=== PATIENT | female | born 1955 | race Caucasian/White ===

== ENCOUNTER 2023-12-28 09:40 | Day surgery (SDC) | payer MEDICARE, SELFPAY ==
[2023-12-24 14:10] VITALS: BMI 27.1
[2023-12-28 09:50] VITALS: BMI 26.6
[2023-12-28 10:26] VITALS: BP 143/78; PULSE 80; RESP 16; TEMP 37.1; O2SAT 95; BMI 26.6
--- NOTE | 2023-12-28 10:34 | HO.ANESPROP2 ---
HPI - Anesthesia Eval Consult details Narrative: Colonic Surveillance [facility] Past Medical History Medical History Depression Elevated cholesterol HTN (hypertension) Family History Family history of problems with anesthesia: No Surgical History Surgical History Hx of hemorrhoidectomy H/O colonoscopy History of Problems with Anesthesia: No Social History Social History Household Members: Spouse Patient Tobacco Use Status: Never used Tobacco Use of substances other than those prescribed or required for medical reasons: No Are you DNR?: No Advance Directives: No Advance Directives Information Provided: Yes Meds Allergies Allergy/AdvReac Type Severity Reaction Status Date / Time Penicillins [PENICILLINS] Allergy Unknown RASH Verified 12/28/23 09:49 Home Medications Medication Instructions Recorded Confirmed Last Taken Type Maggie 12/24/23 Unknown History Lexapro 12/24/23 12/24/23 Unknown History bupropion HCl 12/24/23 Unknown History fluticasone propionate 50 1 spray intranasal DAILY 12/24/23 12/24/23 Unknown History mcg/actuation nasal spray,suspension hydrochlorothiazide 12/24/23 Unknown History Exam Height,Weight and Vital Signs: Height 5 ft 8 in Weight 79.379 kg Last Vital Signs Temp 98.7 F 12/28/23 10:26 Pulse 80 12/28/23 10:26 Resp 16 12/28/23 10:26 BP 143/78 H 12/28/23 10:26 Pulse Ox 95 12/28/23 10:26 O2 Del Method Room Air 12/28/23 10:26 Airway Mallampati Class: II TM Dist: >3cm Neck ROM: Full Loose/Missing/Broken Teeth: No Heart: rrr+[id number] Lungs: cta b/l Assessment and Plan Assessment Anesthesia Assessment: Anesthesia Plan Discussed and Chart Reviewed Final Anesthetic Review Family History of Problems with Anesthesia: No History of Problems with Anesthesia: No NPO: Yes ASA Class: II Final Preanesthetic Review: No Changes in Pt Med Stat, Meds/Allgs Chart Reviewed, Consent Obtained/Reviewed and Anes Risks/Benef Reviewed Patient Risk: Intermediate Procedure Risk: Intermediate Assessment/Block/Sedation in SS: Assess/Block/Sedation- Anesthetic Plan Anesthetic Plan: MAC: Disposition: Standard PACU
--- NOTE | 2023-12-28 10:38 | MHC.SHP ---
Pre-Procedural Eval Section A - 24 Hr Update-Section A only Date of Service: 12/28/23 Section B - Complete if H&P > 30 days Chief Complaint: Encounter for screening for malignant neoplasm of Details of Present Illness: see H&P no changes Relevant Family History (Specify if Yes): No Relevant Social History: None Present Medications: see Short Stay Collaborative assessment Medical History: No relevant PMH History of Previous Operations: No relevant previous surgery Allergies: Allergies Allergy/AdvReac Type Severity Reaction Status Date / Time Penicillins [PENICILLINS] Allergy Unknown RASH Verified 12/28/23 09:49 Review of Systems Sugical H&P ROS: Negative: Constitution, Cardiovascular, Respiratory, Neurological, Psychiatric, Hem-Onc, Allergic/Immunologic, Gastrointestinal, Genitourinary, Musculoskeletal, Integumentary, Endocrine and Eyes/Ears/Nose/Throat Exam Surgical H&P Exam: Normal: HEENT, Normal: Heart, Normal: Lungs, Normal: Extremities, Normal: Abdomen, Normal: Skin and Normal: Neurological Plan Diagnosis/Plan: Unchanged I have reviewed the history and physical and performed a pertinent physical examination on my patient. No changes have occurred unless specified. Time Spent With Patient Time: Total time managing care of this patient today ____ minutes.
[2023-12-28 11:09] VITALS: BP 130/59; PULSE 81; RESP 16; TEMP 36.1; O2SAT 97
[2023-12-28 11:24] VITALS: BP 144/62; PULSE 72; RESP 16; O2SAT 97
[2023-12-28 11:39] VITALS: BP 143/76; PULSE 70; RESP 16; TEMP 36.2; O2SAT 96
--- NOTE | 2023-12-28 11:57 | OP_ITS ---
DATE OF SERVICE: 12/28/2023 SURGEON: Fabrizio Jansen MD INDICATIONS: Colon cancer screening and prior history of adenomatous colon polyps. PREOPERATIVE DIAGNOSIS: POSTOPERATIVE DIAGNOSIS: PROCEDURE PERFORMED: Colonoscopy to the terminal ileum. ESTIMATED BLOOD LOSS: COMPLICATIONS: ANESTHESIA: Monitored anesthesia care. ASSISTANTS: SPECIMENS: DESCRIPTION OF PROCEDURE: A history and physical was performed. The risks and benefits of the procedure were explained to the patient. Informed consent was obtained. The patient was placed in the left lateral decubitus position. A digital rectal exam was performed and was found to be normal. The Olympus pediatric video colonoscope was introduced into the rectum and advanced to the cecum. The cecum was identified by transillumination, palpation, and identification of ileocecal valve. Examination was performed. The scope was removed. She tolerated the procedure well and was returned to the recovery area in stable condition. FINDINGS: The terminal ileum was examined and appeared normal. The visualized colonic mucosa was normal. The quality of the prep was good. No polyps were identified. Retroflexed examination showed small internal hemorrhoids. There was mild sigmoid diverticulosis. IMPRESSION: Normal colonoscopy. RECOMMENDATION: 1. Follow up as needed. 2. Repeat colonoscopy is recommended in 10 years for average risk individuals. MD KIN Leach/ALIA / [phone]
== END 2023-12-28 12:10 | disposition home or self-care (01) ==
PROVIDERS: PCP Internal Medicine; Visit Provider Internal Medicine Gastroenterology
PROC: 0DJD8ZZ Inspection of Lower Intestinal Tract, Via Natural or Artificial Opening Endoscopic (ICD-10-PCS; CPT 45378; principal; 2023-12-28 10:50)
DX: Z12.11 Encounter for screening for malignant neoplasm of colon (principal); Z86.010 Personal history of colon polyps; K57.30 Diverticulosis of large intestine without perforation or abscess without bleeding; K64.8 Other hemorrhoids; K58.2 Mixed irritable bowel syndrome; I10 Essential (primary) hypertension; E78.5 Hyperlipidemia, unspecified; F32.A Depression, unspecified; Z79.899 Other long term (current) drug therapy; Z88.0 Allergy status to penicillin; Z98.890 Other specified postprocedural states
CPT/HCPCS: G0105; J2704

== ENCOUNTER 2024-02-05 23:51 | Inpatient (IN) | payer MEDICARE, SELFPAY ==
--- NOTE | ~2024-02-05 | XR_ITS ---
EXAMINATION: XR TIBIA AND FIBULA, LEFT CLINICAL INFORMATION: Postreduction. COMPARISON: None available. TECHNIQUE: AP and lateral views of the left tibia and fibula were obtained. FINDINGS: There has been partial reduction of the previously noted distal fibular and medial malleolus fractures as well as tibiotalar dislocation. There are persistent mildly displaced fractures of the distal fibula and medial malleolus. There is medial subluxation of the tibia relative to the talus. There has been interval placement of a cast. XR/XR tibia fibula LT 2V IMPRESSION: Partial reduction of previously noted distal fibular and medial malleolus fractures and tibiotalar dislocation.
--- NOTE | ~2024-02-05 | FL_ITS ---
EXAMINATION: XR FLUOROSCOPY WITH IMAGES CLINICAL INFORMATION: Left ankle fracture. COMPARISON: Ankle radiographs 02/06/2024. TECHNIQUE: Fluoroscopy Supervised By: Dr. Jt Medrano. Fluoroscopy Time: 0.2 min Cumulative Dose: 0.459 mGy DAP: 0.07194 mGy-m2 Images: 3 FINDINGS: 3 images demonstrate ORIF left ankle with plate and screw device along the fibula and 2 screws in the medial malleolus. An additional metallic radiopacity is seen overlying the cortex of the medial tibial cortex. Please correlate with the operative report. FL/FL guidance in OR IMPRESSION: Fluoroscopy provided for ORIF of left ankle fracture.
--- NOTE | ~2024-02-05 | CT_ITS ---
EXAMINATION: CT HEAD WITHOUT CONTRAST CLINICAL INFORMATION: Fall. Pain. COMPARISON: None available. TECHNIQUE: Contiguous axial imaging was performed from the skull base to vertex without intravenous administration of contrast. This CT examination was performed using dose optimization techniques as appropriate, variously including the following: *Automated exposure control *Adjustment of mA and/or kV according to patient size (this includes techniques or standardized protocols for targeted exams where dose is matched to indication/reason for exam; i.e. extremities or head) *Use of iterative reconstruction technique DLP: 695 mGy-cm FINDINGS: The lateral, third and fourth ventricles are normally outlined. The cortical sulci and basal cisterns are normally outlined as well. There is mild bilateral periventricular and central white matter diminished attenuation. There is no acute territorial defect, hemorrhage or midline shift. The extra-axial spaces are unremarkable. Calvarium/scalp: Calvarium is intact. There is right frontal/supraorbital soft tissue swelling. Maxillofacial sinuses and mastoids: Clear as visualized. CT/CT head/brain wo IV con IMPRESSION: 1. No acute territorial defect, hemorrhage or midline shift. 2. Mild chronic small vessel ischemic changes.
--- NOTE | ~2024-02-05 | XR_ITS ---
EXAMINATION: XR ANKLE, LEFT CLINICAL INFORMATION: Trauma. Pain. COMPARISON: None available. TECHNIQUE: AP, lateral, and mortise views of the left ankle. FINDINGS: The bone mineralization is within normal limits. There is a displaced comminuted fracture through the distal fibula. There is also an apparent fracture through the medial malleolus. There is complete tibiotalar dislocation. The soft tissues are grossly unremarkable. XR/XR ankle LT min 3V IMPRESSION: 1. Displaced comminuted fracture of the distal fibula. 2. Apparent fracture through the medial malleolus. 3. Complete tibiotalar dislocation.
--- NOTE | ~2024-02-05 | XR_ITS ---
EXAMINATION: XR CHEST CLINICAL INFORMATION: Dizziness. COMPARISON: None available. TECHNIQUE: Frontal view of the chest was obtained. FINDINGS: No significant abnormality is noted involving the heart, lungs, mediastinum, bony thorax or soft tissues. XR/XR chest 1V IMPRESSION: Unremarkable examination.
[2024-02-06] VITALS (20 sets, daily range): BP systolic 110–150; BP diastolic 47–88; PULSE 12–98; RESP 11–18; TEMP 36.6–37.4; O2SAT 88–99; BMI 28.6
--- NOTE | 2024-02-06 | ECG_ITS ---
Test Reason : DIZZINESS/FALL Blood Pressure : / mmHG Vent. Rate : 076 BPM Atrial Rate : 076 BPM P-R Int : 162 ms QRS Dur : 100 ms QT Int : 420 ms P-R-T Axes : 056 029 043 degrees QTc Int : 472 ms Normal sinus rhythm Normal ECG When compared with ECG of 15-DEC-2014 07:19, No significant change was found Referred By: Generic ED Physician Electronically Signed By:IVET MONTANA MD
[2024-02-06 00:55] LABS: Basophils Percent Auto 0.2 % (0-2); Eosinophils Percent Auto 0.2 % (0-4); Hematocrit 36.9 % (37.0-47.0); Hemoglobin 12.7 g/dl (12.0-16.0); Imm Gran Abs Auto 0.08 X10*3/uL (0.00-0.03); Imm Gran Pct Auto 0.5 % (0.0-0.4); Lymphocytes Absolute Auto 0.3 X10*3/uL (1.2-4.9); Lymphocytes Percent Auto 2.1 % (20-40); MANUAL DIFF FLAG SCAN; Mean Corpuscular HGB Conc 34.4 g/dl (31.0-35.0); Mean Corpuscular Hemoglobin 32.1 pg (27.0-33.0); Mean Corpuscular Volume 93.2 fL (80.0-98.0); Mean Platelet Volume 11.5 fL (9.4-12.3); Monocytes Absolute Auto 0.6 X10*3/uL (0.1-1.2); Monocytes Percent Auto 3.4 % (2-11); Neutrophils Absolute Auto 15.3 x10*3/uL (2.0-8.3); Neutrophils Percent Auto 93.6 % (45-73); Platelet Count 206 X10*3/uL (160-400); Red Blood Count 3.96 X10*6/uL (4.20-5.50); Red Cell Distribution Width 12.7 % (11.0-16.0); SCAN SMEAR FLAG 1; White Blood Count 16.3 X10*3/uL (4.8-10.8)
--- NOTE | 2024-02-06 00:56 | ED.DIZZY ---
HPI - Dizziness General Chief Complaint: Dizziness Stated Complaint: dizziness and fall Time Seen by Provider: 02/06/24 00:55 Source: patient Mode of arrival: EMS Limitations: no limitations History of Present Illness HPI Narrative: Patient nauseated vomited few times tried to go to bathroom felt lightheaded and fell hitting her head to the ground and injury to the left ankle with obvious deformity patient does not remember exactly what happened no chest pain or palpitation no shortness of breath no other injuries Related Data Home Medications ?Medication ?Instructions ?Recorded ?Confirmed Maggie 12/24/23 Lexapro 12/24/23 12/24/23 bupropion HCl 12/24/23 fluticasone propionate 50 1 spray intranasal DAILY 12/24/23 12/24/23 mcg/actuation nasal spray,suspension hydrochlorothiazide 12/24/23 Previous Rx's ?Medication ?Instructions ?Recorded oxycodone 5 mg tablet 5 mg PO Q6H PRN pain #30 tabs 02/06/24 Allergies Allergy/AdvReac Type Severity Reaction Status Date / Time Penicillins [PENICILLINS] Allergy Unknown RASH Verified 02/06/24 00:27 Review of Systems Review of Systems: Yes all other systems are reviewed and are negative PMFSH Past Medical History Medical History Depression Elevated cholesterol HTN (hypertension) Surgical History Hx of hemorrhoidectomy H/O colonoscopy Social History Social History Household Members: Spouse Patient Tobacco Use Status: Never used Tobacco Smoked in Last 30 Days: No Advance Directives: No Advance Directives Information Provided: No Physical Exam Vital Signs: Vital Signs: Last Vital Signs Temp 98.0 F 02/06/24 05:55 Pulse 80 02/06/24 05:55 Resp 14 02/06/24 05:55 BP 124/49 L 02/06/24 05:55 Pulse Ox 96 02/06/24 05:55 O2 Del Method Nasal Cannula 02/06/24 05:55 O2 Flow Rate 2 02/06/24 05:55 Oxygen Flow Rate 2 02/06/24 02:25 BMI result Body Mass Index 28.6 Appearance: Alert. Oriented X3. No acute distress. Eyes: PERRLA, No Nystagmus HEENT: Pharynx normal. Oral Mucosa moist ecchymosis on the right eyebrow, normocephalic Neck: Normal inspection. Neck supple. CVS: Normal heart rate and rhythm. Pulses normal. Respiratory: No respiratory distress. Equal air entry bilateral, no wheezing/rales/rhonchi Abdomen: Soft and nontender. Bowel sounds are present, no mass palpable, no CVA tenderness Skin: Skin warm and dry. Normal skin color. Normal skin turgor. Extremities: Obvious deformity with skin tenting left ankle fracture and dislocation neurovascular intact Neuro: Oriented X 3. No motor deficit. No sensory deficit.No cerebellar signs , cranial nerves II-XII intact Medications Administered Discontinued Medications Generic Name Dose Route Start Last Admin Trade Name Freq PRN Reason Stop Dose Admin Hydromorphone HCl 2 mg 02/06/24 01:27 02/06/24 01:36 Hydromorphone Hcl 2 Mg/Ml Vial IVPUSH 02/06/24 01:28 2 mg ONCE ONE Administration Protocol Sodium Chloride 1,000 mls @ 999 mls/hr 02/06/24 03:06 02/06/24 04:23 Ns IV 02/06/24 04:06 Infused .Q1H1M ONE Infusion Ketorolac Tromethamine 30 mg 02/06/24 03:06 02/06/24 03:10 Ketorolac Tromethamine 30 Mg/Ml Vial IVPUSH 02/06/24 03:07 30 mg ONCE ONE Administration Ondansetron HCl 4 mg 02/06/24 01:27 02/06/24 01:36 Ondansetron Hcl 4 Mg/2 Ml Vial IVPUSH 02/06/24 01:28 4 mg ONCE ONE Administration Oxycodone HCl 10 mg 02/06/24 06:45 02/06/24 07:08 Oxycodone Hcl Immed Release 5 Mg Tablet PO 02/06/24 06:46 10 mg ONCE ONE Administration Propofol 200 mg 02/06/24 01:27 02/06/24 02:09 Propofol 200 Mg/20 Ml Vial IVPUSH 02/06/24 01:28 70 mg ONCE ONE Administration Medical Decision Making Medical Decision Making MDM Narrative: Patient is status post bimalleolar fracture of left ankle with complete tibiotalar dislocation status post closed reduction under conscious sedation with acceptable reduction and alignment patient received fentanyl prior to arrival and morphine in the ER desaturating in 80s while sleeping prior to this patient denied any lung issues when she wakes up with saturating 96% at room air will observe in ER till patient is more awake with stable saturations case discussed with orthopedic patient does not need surgery but may need in 2-3 days after swelling goes down if patient can ambulate with walker or cane patient may be able to go home, patient prefers to go home patient's x-ray pre and postreduction were seen by orthopedic PA who discussed the case with Orthopedic Dr. Medrano Differential Diagnosis Differential Diagnoses: The differential diagnosis associated with the presentation includes Left ankle fracture dislocation/vasovagal syncope Admission/Observation Consideration of admission/observation: Escalation of care including admission/observation considered Lab Data MDM Lab Attestation statement: I reviewed the patient's lab results. 02/06/24 00:46 02/06/24 00:46 Labs: Lab Results 02/06/24 Range/Units 00:46 WBC 16.3 H (4.8-10.8) X10*3/uL RBC 3.96 L (4.20-5.50) X10*6/uL Hgb 12.7 (12.0-16.0) g/dl Hct 36.9 L (37.0-47.0) % MCV 93.2 (80.0-98.0) fL MCH 32.1 (27.0-33.0) pg MCHC 34.4 (31.0-35.0) g/dl RDW 12.7 (11.0-16.0) % Plt Count 206 (160-400) X10*3/uL MPV 11.5 (9.4-12.3) fL Immature Gran % (Auto) 0.5 H (0.0-0.4) % Neut % (Auto) 93.6 H (45-73) % Lymph % (Auto) 2.1 L (20-40) % [place] % (Auto) 3.4 (2-11) % Eos % (Auto) 0.2 (0-4) % Baso % (Auto) 0.2 (0-2) % Lymph # (Auto) 0.3 L (1.2-4.9) X10*3/uL [place] # (Auto) 0.6 (0.1-1.2) X10*3/uL Eos # (Auto) 0.0 (0.0-0.4) X10*3/uL Baso # (Auto) 0.0 (0.0-0.2) X10*3/uL Abs Immat Gran (auto) 0.08 H (0.00-0.03) X10*3/uL Absolute Neuts (auto) 15.3 H (2.0-8.3) x10*3/uL Absolute Nucleated RBC 0.000 (0.0-0.012) X10*3/uL Nucleated RBC % (auto) 0.0 (0.0-0.2) /100WBC Smear Tech's Comments VERIFIED Sodium 135 (135-145) mmol/L Potassium 3.3 (3.3-5.1) mmol/L Chloride 105 (96-108) mmol/L Carbon Dioxide 22 (22-29) mmol/L Anion Gap 11 L (12-20) BUN 20 H (9-16) mg/dL Creatinine 0.68 (0.5-1.4) mg/dL Estim Creat Clear Calc 87.6 Estimated GFR > 60 Random Glucose 113 (60-115) mg/dL Calcium 8.0 L (8.4-10.2) mg/dL Total Bilirubin 0.5 (0.0-1.0) mg/dL AST 30 (5-31) U/L ALT 24 (0-31) U/L Alkaline Phosphatase 67 (39-117) U/L Troponin I High Sens 6.4 (<3.5-17.0) ng/L Total Protein 5.9 L (6.5-8.0) g/dL Albumin 3.6 (3.5-5.0) g/dL Influenza Type A (PCR) NEGATIVE (Negative) Influenza Type B (PCR) NEGATIVE (Negative) RSV RNA Qual (PCR) NEGATIVE (Negative) SARS-CoV-2 RNA (RT-PCR) NEGATIVE (Negative) Independent Interpretation I performed an independent interpretation of an: Plain X-Ray Interpretation: XR/XR ankle LT min 3V IMPRESSION: 1. Displaced comminuted fracture of the distal fibula. 2. Apparent fracture through the medial malleolus. 3. Complete tibiotalar dislocation. Radiology Impression Discussion of test interpretation with radiology: I have reviewed the radiologist's reading. Radiologist Impression: [id number] [place] [address] XRay Report Signed Patient: Uzair Alonso MR#: [id number] : 1955 Acct:[id number] Age/Sex: 68 / F ADM Date: 02/06/24 Loc: HO.ED Attending Dr: Ordering Physician: Nate Ceja MD Date of Service: 02/06/24 Procedure(s): XR tibia fibula LT 2V Accession Number(s): [id number] cc: MADISON MENCHACA MD; Nate Ceja MD~ EXAMINATION: XR TIBIA AND FIBULA, LEFT CLINICAL INFORMATION: Postreduction. COMPARISON: None available. TECHNIQUE: AP and lateral views of the left tibia and fibula were obtained. FINDINGS: There has been partial reduction of the previously noted distal fibular and medial malleolus fractures as well as tibiotalar dislocation. There are persistent mildly displaced fractures of the distal fibula and medial malleolus. There is medial subluxation of the tibia relative to the talus. There has been interval placement of a cast. XR/XR tibia fibula LT 2V IMPRESSION: Partial reduction of previously noted distal fibular and medial malleolus fractures and tibiotalar dislocation. Procedures Orthopedic Joint Reduction Joint #1: Time Out Performed: Yes Side: left Joint Reduction Location: ankle Analgesia: procedural sedation and other (Propofol 70 mg) Amount of anesthesic used (mL): 7 Technique used: traction/counter-traction Post-reduction neuro exam: intact Post-reduction vascular: intact Post Reduction X-Ray Obtained: Yes Post Reduction X-Ray Results: reduced Patient Tolerated Procedure: well Orthopedic Splinting/Casting Injury #1: Side: left Lower Extremity Injury Location: ankle Lower Extremity Immobilizer: posterior splint and stirrup splint Other Orthopedic Equipment: crutches Critical Care Time Critical Care Time Critical Care Time: Yes Total Critical Care Time: 60 Attestation: The patient was critically ill with a high probability of imminent or life threatening deterioration. I spent greater than 65???minutes of discontinuous time evaluating the patient,delivering critical care at the bedside, discussing and evaluating pertinent data with consultants. Critical care time does not include time spent performing separately billable procedures or teaching. Total time spent performing critical care was 60???minutes. Discharge Plan Discharge Clinical Impression: Closed fracture dislocation of left ankle Patient Disposition: Still a Patient Instructions: Leg Fracture (ED) Additional Instructions: Keep your left leg raised on the pillow when you sleep Nonweightbearing left leg use walker/crutches Pain medication as prescribed Follow-up with orthopedics next week Prescriptions: New oxycodone 5 mg tablet 5 mg PO Q6H PRN (Reason: pain) Qty: 30 0RF Rx Instructions: Partial Fill upon patient request. No Action Maggie fluticasone propionate [Flonase] 50 mcg/actuation [place],Suspension 1 spray INTRANASAL DAILY Rx Instructions: administer into each nostril Lexapro bupropion HCl hydrochlorothiazide Referrals: Jt Medrano MD [Physician] - 3 days Print Language: Irish
[2024-02-06 01:29] LABS: Troponin-I High Sensitivity 6.4 ng/L (<3.5-17.0)
[2024-02-06 01:31] LABS: Influenza A PCR NEGATIVE (Negative); Influenza B PCR NEGATIVE (Negative); Resp Syncy Virus RNA Qual PCR NEGATIVE (Negative); SARS COV2 PCR INHOUSE NEGATIVE (Negative)
[2024-02-06] MEDS: ondansetron HCL 4 MG/2 ML VIAL IVPUSH (01:36)
[2024-02-06] MEDS: HYDROmorphone HCl 2 MG/ML VIAL IVPUSH (01:36)
[2024-02-06 02:01] LABS: Alanine Aminotransferase 24 U/L (0-31); Albumin Level 3.6 g/dL (3.5-5.0); Alkaline Phosphatase 67 U/L (39-117); Anion Gap 11 (12-20); Aspartate Amino Transferase 30 U/L (5-31); Bilirubin Total 0.5 mg/dL (0.0-1.0); Blood Urea Nitrogen 20 mg/dL (9-16); Carbon Dioxide 22 mmol/L (22-29); Chloride 105 mmol/L (96-108); Creatinine Clr Calc Pharmacy 87.6; Estimated Glomerular Filt Rate > 60; Glucose Random 113 mg/dL (60-115); Potassium 3.3 mmol/L (3.3-5.1); Sodium 135 mmol/L (135-145); Total Protein 5.9 g/dL (6.5-8.0)
[2024-02-06 02:09] LABS: SLIDE REVIEW VERIFIED
[2024-02-06] MEDS: propofoL 200 MG/20 ML VIAL IVPUSH (02:09)
[2024-02-06] MEDS: Ketorolac Tromethamine 30 MG/ML VIAL IVPUSH (03:10)
[2024-02-06] MEDS: 0.9 % Sodium Chloride 1,000 ML 999 ML IV (03:10)
--- NOTE | 2024-02-06 05:36 | PC.NURSE ---
pt came in after a fall from getting dizzy at home. Had been sick since this evening with N/V and became lightheaded and fell with injury to L ankle with obvious deformity. PMH HTN/HLD L ankle reduction done in ED with moderate sedation and . fx. Pt desat in ED to 89 and was placed on 2L. Surgical consult . Will need surgery however needs swelling to go down first. Attemtpt to ambulate for discharge until low saturation. 20 L AC
[2024-02-06] MEDS: oxyCODONE HCl Immed Release 5 MG TABLET 10 MG PO (07:08)
--- NOTE | 2024-02-06 09:26 | PHA.MEDREC ---
Pharmacy Consult ? Medication Reconciliation Pharmacy has completed the medication reconciliation.
--- NOTE | 2024-02-06 10:27 | PM.IMHP ---
History of Present Illness Date of Service: 02/06/24 Chief Complaint: Fall, Left ankle fracture 68/F with HTN takes HCTZ here with fall and left caryn injuy. After dinner yesterday, she had nausea and vomitting and while going to bathroom ritu dzzy and felt, didn't pass out. She injured the left ankle. Xray showed distal fibular and medial malleolus fractures and tibiotalar dislocation.She was to be discharged home, however while sleeping in the ED noted to have drop in O2 sat to below 90, at rest saturating 98 % on room. She has no chest pain or shortness of breath. When attempted to ambulate also O2 dropped and is thus been admitted Review of Systems Review of Systems: Gen: no fever Resp: no sob, no cough CV: no chest, no HIGGINS, no leg edema GI: No n/v, no abd pain Neuro: No confusion Yes all other systems are reviewed and are negative [facility] Medical History Depression Elevated cholesterol HTN (hypertension) Surgical History Hx of hemorrhoidectomy H/O colonoscopy Social History Household Members: Spouse Housing: House Do you presently have visiting nurse or other home services: No Patient Tobacco Use Status: Never used Tobacco Smoked in Last 30 Days: No Use of substances other than those prescribed or required for medical reasons: No Have you been hit, kicked, punched, or otherwise hurt by someone within the past year? If so, by whom?: No Do you feel safe in your current relationship?: Yes Is there a partner from a previous relationship who is making you feel unsafe now?: No Are you made to feel afraid or neglected: No Advance Directives: No Advance Directives Information Provided: No Do you have thoughts of harming others: None Do you have a plan to hurt others: No Plan Recently lost weight without trying: No How much weight loss: Not applicable Eating poorly because of decreased appetite: No Nutrition screen score: 0 Nutrition Risks: No Nutritional Risk Patient : No : No Poor oral hygiene: No Meds Allergies Allergy/AdvReac Type Severity Reaction Status Date / Time Penicillins [PENICILLINS] Allergy Unknown RASH Verified 02/06/24 00:27 Home Medications ?Medication ?Instructions ?Recorded ?Confirmed ?Last Taken ?Type fluticasone propionate 50 1 spray intranasal DAILY 12/24/23 02/06/24 02/05/24 History mcg/actuation nasal spray,suspension bupropion HCl 300 mg 24 hr tablet, 300 mg PO DAILY 02/06/24 02/06/24 02/05/24 History extended release escitalopram oxalate 5 mg tablet 5 mg PO DAILY 02/06/24 02/06/24 02/05/24 History fexofenadine 180 mg tablet 180 mg PO DAILY 02/06/24 02/06/24 02/05/24 History (Maggie Allergy) hydrochlorothiazide 25 mg tablet 25 mg PO DAILY 02/06/24 02/06/24 02/05/24 History Physical Exam Vital Signs and Narrative: Vital Signs: Last Vital Signs Temp 98.0 F 02/06/24 08:27 Pulse 78 02/06/24 08:27 Resp 11 L 02/06/24 08:27 BP 117/60 02/06/24 08:27 Pulse Ox 95 02/06/24 08:27 O2 Del Method Nasal Cannula 02/06/24 08:27 O2 Flow Rate 2 02/06/24 08:27 Oxygen Flow Rate 2 02/06/24 02:25 BMI result Body Mass Index 28.6 Constitutional: Alert, in no distress Mental Status: Oriented to person, place and time. Eyes: Pupils are equal, round and reactive to light. Ear, Nose and Throat: Oropharynx clear, mucous membranes moist. Ears and nose without deformities. Trachea midline. Respiratory: Clear to auscultation. No wheezing, rales or rhonchi. Cardiovascular: S1 S2 regular. No murmurs, rubs or gallops. Gastrointestinal: Abdomen soft, non-tender, non-distended. Normal bowel sounds.? Neurologic: Cranial nerves II-XII grossly intact. No focal neurological deficits. Moves all extremities spontaneously.? Skin: No rashes or lesions.? Musculoskeletal: No cyanosis or clubbing. Psychiatric: Normal mood and affect? Results Labs 02/07/24 05:22 02/07/24 05:22 Labs: Imaging Radiologist's Impressions: Impressions Ankle X-Ray 02/06/24 01:03 IMPRESSION: 1. Displaced comminuted fracture of the distal fibula. 2. Apparent fracture through the medial malleolus. 3. Complete tibiotalar dislocation. Chest X-Ray 02/06/24 01:03 IMPRESSION: Unremarkable examination. Head CT 02/06/24 01:05 IMPRESSION: 1. No acute territorial defect, hemorrhage or midline shift. 2. Mild chronic small vessel ischemic changes. Tibia/Fibula X-Ray 02/06/24 02:35 IMPRESSION: Partial reduction of previously noted distal fibular and medial malleolus fractures and tibiotalar dislocation. Assessment and Plan (1) Closed fracture dislocation of left ankle: Status: Acute (2) Hypoxia: Status: Acute Plan 68/F with HTN here with distal fibular and medial malleolus fractures and tibiotalar dislocation distal fibular and medial malleolus fractures and tibiotalar dislocation s/p splint to left ankle -Ortho consult, Pain management with morphine Dizziness likely related to dehydration, nausea and vomitting, -IVF Hypoxia mostly while sleeping-- suspect sleep apnea, O2 sat 98 on room air at res--low suspdicion for PE, no chest pain, no tachycardia -check DDimer if signficantly high, get CTA -Overnight O2 study Quality Stroke Does the patient have a stroke diagnosis?: No VTE Prior VTE?: No VTE Risk Level:: Medical - moderate - high VTE Device Contraindication: Treatment Not Indicated VTE Drug Contraindication: N/A - Med Ordered
[2024-02-06] MEDS: Escitalopram Oxalate 5 MG TABLET PO (10:45)
[2024-02-06] MEDS: Enoxaparin Sodium 40 MG/0.4 ML SYRINGE SUBCUT (10:45)
[2024-02-06] MEDS: buPROPion HCl XL 300 MG TAB.ER.24H PO (10:45)
[2024-02-06] MEDS: Morphine Sulfate 2 MG/ML CARTRIDGE IVPUSH ×2 (10:48→18:12)
[2024-02-06 11:58] LABS: D Dimer High Sensitivity 343 NG/ML
--- NOTE | 2024-02-06 13:10 | PC.NURSE ---
Holding CTA at this time per Dr Bautista as no hypoxia at this time.
[2024-02-06] MEDS: Ibuprofen 600 MG TABLET PO (15:59)
[2024-02-06] MEDS: 0.9 % Sodium Chloride Flush 3 ML SYRINGE IVFLUSH (16:03)
--- NOTE | 2024-02-06 19:25 | PC.NURSE ---
Addendum entered by Cee Keenearnacion 02/06/24 19:31: purewick in place with positive output. left ankle in cast, pt denies any numbness, 2 sec cap refill notes of exposed toes. Original Note: Assumed care pot pt at 1900. Pt a/o in no acute distress. Skin pwd, Respirations even and unlabored, vss, pt denies pain at this time. Call mathur within reach. Awaiting bed assignment
[2024-02-06] MEDS: Acetaminophen 325 MG TABLET 650 MG PO (21:16)
--- NOTE | 2024-02-06 22:42 | PC.RT ---
Overnight pulse Oximetry delayed until 02/07/2024 due to pt still remaining in the emergency department and unable to guarantee the amount of sleep necessary to complete study. Provider aware
[2024-02-07] VITALS (7 sets, daily range): BP systolic 114–152; BP diastolic 60–73; PULSE 74–92; RESP 12–20; TEMP 36.2–37.5; O2SAT 92–96; BMI 28.6
[2024-02-07] MEDS: 0.9 % Sodium Chloride Flush 3 ML SYRINGE IVFLUSH ×4 (03:14→19:52)
[2024-02-07] MEDS: Morphine Sulfate 2 MG/ML CARTRIDGE IVPUSH ×4 (03:22→23:06)
[2024-02-07 05:33] LABS: Hematocrit 32.2 % (37.0-47.0); Hemoglobin 10.9 g/dl (12.0-16.0); Mean Corpuscular HGB Conc 33.9 g/dl (31.0-35.0); Mean Corpuscular Hemoglobin 32.2 pg (27.0-33.0); Platelet Count 166 X10*3/uL (160-400); Red Blood Count 3.39 X10*6/uL (4.20-5.50); Red Cell Distribution Width 13.3 % (11.0-16.0); White Blood Count 3.1 X10*3/uL (4.8-10.8)
[2024-02-07 05:52] LABS: Anion Gap 9 (12-20); Blood Urea Nitrogen 11 mg/dL (9-16); Calcium 8.8 mg/dL (8.4-10.2); Carbon Dioxide 28 mmol/L (22-29); Chloride 103 mmol/L (96-108); Creatinine Clr Calc Pharmacy 81.5; Estimated Glomerular Filt Rate > 60; Glucose Random 98 mg/dL (60-115); Potassium 3.3 mmol/L (3.3-5.1); Sodium 137 mmol/L (135-145)
--- NOTE | 2024-02-07 07:19 | PM.CNOR ---
History of Present Illness HPI Consult date: 02/07/24 Chief complaint: Left Ankle fracture, hypoxia Narrative: Ms. Alonso is a 68 yo female who presented to the ED after attempting to navigate to the bathroom. She felt lightheaded and fell hitting her head to the ground and injury to the left ankle with obvious deformity. No additional significant medical history. She is ambulatory at baseline. Does not use any assistive devices to ambulate. She was admitted to the medicine service with orthopedic consult for the left ankle fracture dislocation. She is currently resting in bed with no complaints. Pain is managed. Splint applied to left lower extremity is comfortable. Review of Systems Review of Systems: Yes all other systems are reviewed and are negative PMFSH Past Medical History Medical History Depression Elevated cholesterol HTN (hypertension) Surgical History Surgical History Hx of hemorrhoidectomy H/O colonoscopy Social History Social History Household Members: Spouse Housing: House Do you presently have visiting nurse or other home services: No Patient Tobacco Use Status: Never used Tobacco Smoked in Last 30 Days: No Use of substances other than those prescribed or required for medical reasons: No Have you been hit, kicked, punched, or otherwise hurt by someone within the past year? If so, by whom?: No Do you feel safe in your current relationship?: Yes Is there a partner from a previous relationship who is making you feel unsafe now?: No Are you made to feel afraid or neglected: No Advance Directives: No Advance Directives Information Provided: No Do you have thoughts of harming others: None Do you have a plan to hurt others: No Plan Recently lost weight without trying: No How much weight loss: Not applicable Eating poorly because of decreased appetite: No Nutrition screen score: 0 Nutrition Risks: No Nutritional Risk Patient : No : No Poor oral hygiene: No Meds Allergies Allergy/AdvReac Type Severity Reaction Status Date / Time Penicillins [PENICILLINS] Allergy Unknown RASH Verified 02/06/24 00:27 Active Medications: Current Medications Acetaminophen (Acetaminophen 325 Mg Tablet) 650 mg PO Q6H PRN PRN Reason: Pain, Mild (Pain Scale 1-3) Last Admin: 02/06/24 21:16 Dose: 650 mg Al Hydroxide/Mg Hydroxide (Magnesium Hydrox/Alum Hydrox 30 Ml Oral.Susp) 30 ml PO Q4H PRN PRN Reason: Heartburn/Nausea Bupropion HCl (Bupropion Hcl Xl 300 Mg Tab.Er.24h) 300 mg PO DAILY [facility] Last Admin: 02/06/24 10:45 Dose: 300 mg Docusate Sodium (Docusate Sodium 100 Mg Capsule) 100 mg PO DAILY PRN PRN Reason: Constipation Enoxaparin Sodium (Enoxaparin Sodium 40 Mg/0.4 Ml Syringe) 40 mg SUBCUT Q24H [facility] Last Admin: 02/06/24 10:45 Dose: 40 mg Escitalopram Oxalate (Escitalopram Oxalate 5 Mg Tablet) 5 mg PO DAILY [facility] Last Admin: 02/06/24 10:45 Dose: 5 mg Fluticasone Propionate (Fluticasone Propionate Nasal 16 Gm [place]) 1 spray NOSTRIL-B DAILY [facility] Last Admin: 02/06/24 10:46 Dose: Not Given Hydrochlorothiazide (Hydrochlorothiazide 25 Mg Tablet) 25 mg PO DAILY [facility]; Protocol Ibuprofen (Ibuprofen 600 Mg Tablet) 600 mg PO Q6H PRN PRN Reason: Pain, Moderate(Pain Scale 4-6) Last Admin: 02/06/24 15:59 Dose: 600 mg Loratadine (Loratadine 10 Mg Tablet) 10 mg PO DAILY [facility] Magnesium Hydroxide (Milk Of Magnesia 30 Ml Oral.Susp) 30 ml PO DAILY PRN PRN Reason: Constipation Morphine Sulfate (Morphine Sulfate 2 Mg/Ml Cartridge) 2 mg IVPUSH Q6H PRN; Protocol PRN Reason: Pain, Severe (Pain Scale 7-10) Last Admin: 02/07/24 03:22 Dose: 2 mg Ondansetron HCl (Ondansetron Hcl 4 Mg/2 Ml Vial) 4 mg IVPUSH Q8H PRN PRN Reason: Nausea and Vomiting Sodium Chloride (0.9 % Sodium Chloride Flush 3 Ml Syringe) 3 ml IVFLUSH QSHIFT [facility] Last Admin: 02/07/24 03:14 Dose: 3 ml Home Medications ?Medication ?Instructions ?Recorded ?Confirmed ?Last Taken ?Type fluticasone propionate 50 1 spray intranasal DAILY 12/24/23 02/06/24 02/05/24 History mcg/actuation nasal spray,suspension bupropion HCl 300 mg 24 hr tablet, 300 mg PO DAILY 02/06/24 02/06/24 02/05/24 History extended release escitalopram oxalate 5 mg tablet 5 mg PO DAILY 02/06/24 02/06/24 02/05/24 History fexofenadine 180 mg tablet 180 mg PO DAILY 02/06/24 02/06/24 02/05/24 History (Maggie Allergy) hydrochlorothiazide 25 mg tablet 25 mg PO DAILY 02/06/24 02/06/24 02/05/24 History Physical Exam Vital Signs: Vital Signs: Last Vital Signs Temp 98.1 F 02/07/24 07:08 Pulse 74 02/07/24 07:08 Resp 14 02/07/24 07:08 BP 119/60 02/07/24 07:08 Pulse Ox 94 02/07/24 07:08 O2 Del Method Room Air 02/07/24 07:08 O2 Flow Rate 2 02/06/24 08:27 Oxygen Flow Rate 2 02/06/24 02:25 BMI result Body Mass Index 28.6 Const: General: cooperative, healthy appearing and no acute distress Resp: Effort & Inspection: normal respiratory effort and able to speak in complete sentences Cardio: Rate: regular rate Peripheral pulses: Peripheral pulses 2+ throughout GI: Palpation (GI): Soft to palpation Skin: Lesions: no lesions Rashes: no rashes Extrem: Other: Left lower extremity in posterior short leg splint. Splint is c/d/i. Able to move digits. Sensation reportedly intact. Capillary refill is brisk. Results Labs 02/07/24 05:22 02/07/24 05:22 Labs: Abnormal lab results 02/07/24 Range/Units 05:22 WBC 3.1 L (4.8-10.8) X10*3/uL RBC 3.39 L (4.20-5.50) X10*6/uL Hgb 10.9 L (12.0-16.0) g/dl Hct 32.2 L (37.0-47.0) % Anion Gap 9 L (12-20) H & H 02/06/24 02/07/24 Range/Units 00:46 05:22 Hgb 12.7 10.9 L (12.0-16.0) g/dl Hct 36.9 L 32.2 L (37.0-47.0) % All other labs normal. Assessment and Plan (1) Hypoxia: Status: Acute (2) Closed fracture dislocation of left ankle: Status: Acute Keep splint c/d/i Pain management as appropriate NWB LLE Plan for surgical fixation once medically cleared and once swelling allows Strict elevation on three pillows above heart level Procedures Date of Service Date of Service: 02/07/24
[2024-02-07] MEDS: Ibuprofen 600 MG TABLET PO ×2 (07:44→19:52)
--- NOTE | 2024-02-07 08:11 | HO.PM.IMPN ---
Subjective Subjective Date of Service: 02/07/24 Interval History: Seen in f/u for ankle fracture, hypoxia reports no shortness of breath, or chest pain pain is controlled Physical Exam Vital Signs: Vital Signs: Last Vital Signs Temp 98.1 F 02/07/24 07:08 Pulse 74 02/07/24 07:08 Resp 14 02/07/24 07:08 BP 119/60 02/07/24 07:08 Pulse Ox 94 02/07/24 07:08 O2 Del Method Room Air 02/07/24 07:08 O2 Flow Rate 2 02/06/24 08:27 Oxygen Flow Rate 2 02/06/24 02:25 BMI result Body Mass Index 28.6 General: AO X 3, no acute distress Resp: CTA bilateral CVS: S1,S2,RRR GI: +BS, NT, no distention Skin: No rash MSK: left ankle splint in place Neuro: motor grossly intact Psych: appropriate affect Objective Data Active Medications Acetaminophen (Acetaminophen 325 Mg Tablet) 650 mg PO Q6H PRN PRN Reason: Pain, Mild (Pain Scale 1-3) Last Admin: 02/06/24 21:16 Dose: 650 mg Documented By: ALESSANDRO Al Hydroxide/Mg Hydroxide (Magnesium Hydrox/Alum Hydrox 30 Ml Oral.Susp) 30 ml PO Q4H PRN PRN Reason: Heartburn/Nausea Bupropion HCl (Bupropion Hcl Xl 300 Mg Tab.Er.24h) 300 mg PO DAILY [facility] Last Admin: 02/06/24 10:45 Dose: 300 mg Documented By: PRADIP Docusate Sodium (Docusate Sodium 100 Mg Capsule) 100 mg PO DAILY PRN PRN Reason: Constipation Enoxaparin Sodium (Enoxaparin Sodium 40 Mg/0.4 Ml Syringe) 40 mg SUBCUT Q24H [facility] Last Admin: 02/06/24 10:45 Dose: 40 mg Documented By: PRADIP Escitalopram Oxalate (Escitalopram Oxalate 5 Mg Tablet) 5 mg PO DAILY [facility] Last Admin: 02/06/24 10:45 Dose: 5 mg Documented By: PRADIP Fluticasone Propionate (Fluticasone Propionate Nasal 16 Gm [place]) 1 spray NOSTRIL-B DAILY [facility] Last Admin: 02/06/24 10:46 Dose: Not Given Documented By: PRADIP Non-Admin Reason: Patient Refused Hydrochlorothiazide (Hydrochlorothiazide 25 Mg Tablet) 25 mg PO DAILY [facility]; Protocol Ibuprofen (Ibuprofen 600 Mg Tablet) 600 mg PO Q6H PRN PRN Reason: Pain, Moderate(Pain Scale 4-6) Last Admin: 02/07/24 07:44 Dose: 600 mg Documented By: ASHLEE Loratadine (Loratadine 10 Mg Tablet) 10 mg PO DAILY [facility] Magnesium Hydroxide (Milk Of Magnesia 30 Ml Oral.Susp) 30 ml PO DAILY PRN PRN Reason: Constipation Morphine Sulfate (Morphine Sulfate 2 Mg/Ml Cartridge) 2 mg IVPUSH Q6H PRN; Protocol PRN Reason: Pain, Severe (Pain Scale 7-10) Last Admin: 02/07/24 03:22 Dose: 2 mg Documented By: ALESSANDRO Ondansetron HCl (Ondansetron Hcl 4 Mg/2 Ml Vial) 4 mg IVPUSH Q8H PRN PRN Reason: Nausea and Vomiting Sodium Chloride (0.9 % Sodium Chloride Flush 3 Ml Syringe) 3 ml IVFLUSH QSHIFT [facility] Last Admin: 02/07/24 03:14 Dose: 3 ml Documented By: ALESSANDRO Labs 02/07/24 05:22 02/07/24 05:22 Labs: Laboratory Results - last 24 hr 02/06/24 02/07/24 11:30 05:22 MCV 95.0 MCH 32.2 MCHC 33.9 RDW 13.3 Plt Count 166 MPV 11.0 Absolute Nucleated RBC 0.000 Nucleated RBC % (auto) 0.0 D-Dimer High Sensitivty 343 Anion Gap 9 L Estim Creat Clear Calc 81.5 Estimated GFR > 60 Random Glucose 98 Calcium 8.8 D Assessment and Plan (1) Hypoxia: Status: Acute (2) Closed fracture dislocation of left ankle: Status: Acute Plan 68/F with HTN here with distal fibular and medial malleolus fractures and tibiotalar dislocation distal fibular and medial malleolus fractures and tibiotalar dislocation s/p splint to left ankle -Ortho to dictate next level of care,, Pain management with morphine Dizziness likely related to dehydration, nausea and vomitting, -IVF Hypoxia mostly while sleeping-- suspect sleep apnea, O2 sat 98 on room air at [facility]--low suspicion for PE, no chest pain, no tachycardia, DDimer 343 -O2 PRN, incentive spirometry. Overnight O2 study need for inpt: Ankle fracture that might need surgery Lovenox for dvt prophylaxis full code PT eval Quality Stroke Does the patient have a stroke diagnosis?: No VTE Prior VTE?: No VTE Risk Level:: Medical - moderate - high VTE Device Contraindication: Treatment Not Indicated VTE Drug Contraindication: N/A - Med Ordered
[2024-02-07] MEDS: Loratadine 10 MG TABLET PO (08:59)
[2024-02-07] MEDS: hydroCHLOROthiazide 25 MG TABLET PO (08:59)
[2024-02-07] MEDS: Escitalopram Oxalate 5 MG TABLET PO (08:59)
[2024-02-07] MEDS: buPROPion HCl XL 300 MG TAB.ER.24H PO (08:59)
--- NOTE | 2024-02-07 09:54 | MHC.CM.PN ---
IMM delivered. Patient lives at home w/ . Funtionally independent. Denies use of services or DME. PCP Stan Winn MD Completed HCP naming agents 1) Nando [phone], 2) son Wero Alonso [phone] DP: Awaiting surgery. Will need PT eval. Goal is home w/ services. Prefers [facility]. to transport home. CM will continue to follow.
[2024-02-07] MEDS: Enoxaparin Sodium 40 MG/0.4 ML SYRINGE SUBCUT (10:58)
[2024-02-07 11:53] LABS: Appearance Urine Clear; Color Urine Yellow; Glucose Urine UA Negative (Negative); Leukocyte Esterase Urine Negative (Negative); Nitrite Urine Negative (Negative); PH 6.5 (5.0-9.0); Specific Gravity - Urine 1.025 (1.005-1.025); Urine Blood Negative (Negative); Urine Ketones 15 mg/dL (Negative); Urine Protein Trace mg/dL (Neg-Trace)
[2024-02-07] MEDS: Acetaminophen 325 MG TABLET 650 MG PO (12:20)
[2024-02-07] MEDS: Loperamide HCl 2 MG CAPSULE PO (19:52)
--- NOTE | 2024-02-07 22:52 | PC.RT ---
Placed on NOC Oximetry at 2240; pt on RA resting comfortably in bed
[2024-02-08] VITALS (10 sets, daily range): BP systolic 120–157; BP diastolic 64–81; PULSE 69–96; RESP 14–18; TEMP 36.3–37.7; O2SAT 93–99
--- NOTE | 2024-02-08 04:05 | PC.RT ---
NOC Oximetry end @ 0405
[2024-02-08] MEDS: Morphine Sulfate 2 MG/ML CARTRIDGE IVPUSH (07:41)
[2024-02-08] MEDS: hydroCHLOROthiazide 25 MG TABLET PO (08:32)
[2024-02-08] MEDS: buPROPion HCl XL 300 MG TAB.ER.24H PO (08:32)
[2024-02-08] MEDS: Escitalopram Oxalate 5 MG TABLET PO (08:32)
[2024-02-08] MEDS: 0.9 % Sodium Chloride Flush 3 ML SYRINGE IVFLUSH ×2 (08:34→20:10)
--- NOTE | 2024-02-08 09:36 | HO.PM.IMPN ---
Subjective Subjective Date of Service: 02/08/24 Interval History: Seen in f/u for ankle fracture, hypoxia reports no shortness of breath, or chest pain pain is controlled so long not moving Physical Exam Vital Signs: Vital Signs: Last Vital Signs Temp 98.1 F 02/08/24 07:43 Pulse 73 02/08/24 07:43 Resp 14 02/08/24 07:43 BP 131/65 02/08/24 07:43 Pulse Ox 93 02/08/24 07:43 O2 Del Method Room Air 02/08/24 07:43 O2 Flow Rate 2 02/06/24 08:27 Oxygen Flow Rate 2 02/06/24 02:25 BMI result Body Mass Index 28.6 General: AO X 3, no acute distress Resp: CTA bilateral CVS: S1,S2,RRR GI: +BS, NT, no distention Skin: No rash MSK: left ankle splint in place Neuro: motor grossly intact Psych: appropriate affect Objective Data Active Medications Acetaminophen (Acetaminophen 325 Mg Tablet) 650 mg PO Q6H PRN PRN Reason: Pain, Mild (Pain Scale 1-3) Last Admin: 02/07/24 12:20 Dose: 650 mg Documented By: ASHLEE Al Hydroxide/Mg Hydroxide (Magnesium Hydrox/Alum Hydrox 30 Ml Oral.Susp) 30 ml PO Q4H PRN PRN Reason: Heartburn/Nausea Bupropion HCl (Bupropion Hcl Xl 300 Mg Tab.Er.24h) 300 mg PO DAILY [facility] Last Admin: 02/08/24 08:32 Dose: 300 mg Documented By: ASHLEE Docusate Sodium (Docusate Sodium 100 Mg Capsule) 100 mg PO DAILY PRN PRN Reason: Constipation Enoxaparin Sodium (Enoxaparin Sodium 40 Mg/0.4 Ml Syringe) 40 mg SUBCUT Q24H [facility] Last Admin: 02/07/24 10:58 Dose: 40 mg Documented By: ASHLEE Escitalopram Oxalate (Escitalopram Oxalate 5 Mg Tablet) 5 mg PO DAILY [facility] Last Admin: 02/08/24 08:32 Dose: 5 mg Documented By: ASHLEE Fluticasone Propionate (Fluticasone Propionate Nasal 16 Gm [place]) 1 spray NOSTRIL-B DAILY [facility] Last Admin: 02/08/24 08:35 Dose: Not Given Documented By: ASHLEE Non-Admin Reason: Patient Refused Hydrochlorothiazide (Hydrochlorothiazide 25 Mg Tablet) 25 mg PO DAILY [facility]; Protocol Last Admin: 02/08/24 08:32 Dose: 25 mg Documented By: ASHLEE Ibuprofen (Ibuprofen 600 Mg Tablet) 600 mg PO Q6H PRN PRN Reason: Pain, Moderate(Pain Scale 4-6) Last Admin: 02/07/24 19:52 Dose: 600 mg Documented By: WENDY Loratadine (Loratadine 10 Mg Tablet) 10 mg PO DAILY [facility] Last Admin: 02/08/24 08:35 Dose: Not Given Documented By: ASHLEE Non-Admin Reason: Patient Refused Magnesium Hydroxide (Milk Of Magnesia 30 Ml Oral.Susp) 30 ml PO DAILY PRN PRN Reason: Constipation Morphine Sulfate (Morphine Sulfate 2 Mg/Ml Cartridge) 2 mg IVPUSH Q6H PRN; Protocol PRN Reason: Pain, Severe (Pain Scale 7-10) Last Admin: 02/08/24 07:41 Dose: 2 mg Documented By: ASHLEE Ondansetron HCl (Ondansetron Hcl 4 Mg/2 Ml Vial) 4 mg IVPUSH Q8H PRN PRN Reason: Nausea and Vomiting Sodium Chloride (0.9 % Sodium Chloride Flush 3 Ml Syringe) [facility] Last Admin: 02/08/24 08:34 Dose: 3 ml Documented By: ASHLEE Labs 02/07/24 05:22 02/07/24 05:22 Labs: Laboratory Results - last 24 hr 02/07/24 11:26 Urine Color Yellow Urine Appearance Clear Urine pH 6.5 Ur Specific [place] 1.025 Urine Protein Trace Urine Glucose (UA) Negative Urine Ketones 15 Urine Blood Negative Urine Nitrite Negative Ur Leukocyte Esterase Negative Assessment and Plan (1) Hypoxia: Status: Acute (2) Closed fracture dislocation of left ankle: Status: Acute Plan 68/F with HTN here with distal fibular and medial malleolus fractures and tibiotalar dislocation distal fibular and medial malleolus fractures and tibiotalar dislocation s/p splint to left ankle -Ortho to dictate next level of care,, Pain management with morphine -average risk surgery and no further testing at this time Dizziness likely related to dehydration, nausea and vomitting, resolved -IVF Hypoxia mostly while sleeping-- suspect sleep apnea, O2 sat 98 on room air at [facility]--low suspicion for PE, no chest pain, no tachycardia, DDimer 343 -O2 PRN, incentive spirometry. Overnight O2 study need for inpt: Ankle fracture that need surgery Lovenox for dvt prophylaxis full code PT eval Quality Stroke Does the patient have a stroke diagnosis?: No VTE Prior VTE?: No VTE Risk Level:: Medical - moderate - high VTE Device Contraindication: Treatment Not Indicated VTE Drug Contraindication: N/A - Med Ordered
--- NOTE | 2024-02-08 10:12 | PC.NURSE ---
RT States now ABG needs to be drawn.
--- NOTE | 2024-02-08 15:13 | PC.NURSE ---
report given to maribell lozano
--- NOTE | 2024-02-08 15:56 | MHC.SHP ---
Pre-Procedural Eval Section A - 24 Hr Update-Section A only Date of Service: 02/08/24 The patient is an INPATIENT: Yes Changes since office visit: No Cold of Flu in the past 2 weeks, No New Medical Problems, No Changes in Medication and No Patient answered all questions The patient has been examined within 24 hours of the surgical procedure. The History & Physical has been completed within 30 days and I have reviewed it.: Yes Section B - Complete if H&P > 30 days Chief Complaint: Left Ankle fracture, hypoxia Allergies: Allergies Allergy/AdvReac Type Severity Reaction Status Date / Time Penicillins [PENICILLINS] Allergy Unknown RASH Verified 02/06/24 00:27 Plan I have reviewed the history and physical and performed a pertinent physical examination on my patient. No changes have occurred unless specified. Time Spent With Patient Time: Total time managing care of this patient today ____ minutes.
--- NOTE | 2024-02-08 17:27 | HO.ANESPROP2 ---
HPI - Anesthesia Eval Consult details Narrative: 68-year-old female presenting with ankle fracture. No significant past cardiopulmonary history PMFSH Active Problems Active Problems: All Active Problems Hypoxia (Acute) Closed fracture dislocation of left ankle (Acute) Past Medical History Medical History Depression Elevated cholesterol HTN (hypertension) Family History Family history of problems with anesthesia: No Surgical History Surgical History Hx of hemorrhoidectomy H/O colonoscopy History of Problems with Anesthesia: No Social History Social History Household Members: Spouse Housing: House Do you presently have visiting nurse or other home services: No Patient Tobacco Use Status: Never used Tobacco Smoked in Last 30 Days: No Use of substances other than those prescribed or required for medical reasons: No Currently Displaying Signs/Symptoms of Drug Intoxication Withdrawal: No Have you been hit, kicked, punched, or otherwise hurt by someone within the past year? If so, by whom?: No Do you feel safe in your current relationship?: Yes Is there a partner from a previous relationship who is making you feel unsafe now?: No Are you made to feel afraid or neglected: No Are you DNR?: No Advance Directives: No Advance Directives Information Provided: No Do you have thoughts of harming others: None Do you have a plan to hurt others: No Plan Recently lost weight without trying: No How much weight loss: Not applicable Eating poorly because of decreased appetite: No Nutrition screen score: 0 Nutrition Risks: No Nutritional Risk Patient : No : No Poor oral hygiene: No service: No Meds Allergies Allergy/AdvReac Type Severity Reaction Status Date / Time Penicillins [PENICILLINS] Allergy Unknown RASH Verified 02/06/24 00:27 Active Medications: Current Medications Acetaminophen (Acetaminophen 325 Mg Tablet) 650 mg PO Q6H PRN PRN Reason: Pain, Mild (Pain Scale 1-3) Last Admin: 02/07/24 12:20 Dose: 650 mg Al Hydroxide/Mg Hydroxide (Magnesium Hydrox/Alum Hydrox 30 Ml Oral.Susp) 30 ml PO Q4H PRN PRN Reason: Heartburn/Nausea Bupropion HCl (Bupropion Hcl Xl 300 Mg Tab.Er.24h) 300 mg PO DAILY [facility] Last Admin: 02/08/24 08:32 Dose: 300 mg Docusate Sodium (Docusate Sodium 100 Mg Capsule) 100 mg PO DAILY PRN PRN Reason: Constipation Enoxaparin Sodium (Enoxaparin Sodium 40 Mg/0.4 Ml Syringe) 40 mg SUBCUT Q24H [facility] Last Admin: 02/08/24 10:48 Dose: Not Given Escitalopram Oxalate (Escitalopram Oxalate 5 Mg Tablet) 5 mg PO DAILY [facility] Last Admin: 02/08/24 08:32 Dose: 5 mg Fluticasone Propionate (Fluticasone Propionate Nasal 16 Gm Dexter) 1 spray NOSTRIL-B DAILY [facility] Last Admin: 02/08/24 08:35 Dose: Not Given Hydrochlorothiazide (Hydrochlorothiazide 25 Mg Tablet) 25 mg PO DAILY [facility]; Protocol Last Admin: 02/08/24 08:32 Dose: 25 mg Ibuprofen (Ibuprofen 600 Mg Tablet) 600 mg PO Q6H PRN PRN Reason: Pain, Moderate(Pain Scale 4-6) Last Admin: 02/07/24 19:52 Dose: 600 mg Loratadine (Loratadine 10 Mg Tablet) 10 mg PO DAILY [facility] Last Admin: 02/08/24 08:35 Dose: Not Given Magnesium Hydroxide (Milk Of Magnesia 30 Ml Oral.Susp) 30 ml PO DAILY PRN PRN Reason: Constipation Morphine Sulfate (Morphine Sulfate 2 Mg/Ml Cartridge) 2 mg IVPUSH Q6H PRN; Protocol PRN Reason: Pain, Severe (Pain Scale 7-10) Last Admin: 02/08/24 07:41 Dose: 2 mg Ondansetron HCl (Ondansetron Hcl 4 Mg/2 Ml Vial) 4 mg IVPUSH Q8H PRN PRN Reason: Nausea and Vomiting Sodium Chloride (0.9 % Sodium Chloride Flush 3 Ml Syringe) 3 ml IVFLUSH QSHIFT [facility] Last Admin: 02/08/24 15:03 Dose: Not Given Home Medications ?Medication ?Instructions ?Recorded ?Confirmed ?Last Taken ?Type fluticasone propionate 50 1 spray intranasal DAILY 12/24/23 02/06/24 02/05/24 History mcg/actuation nasal spray,suspension bupropion HCl 300 mg 24 hr tablet, 300 mg PO DAILY 02/06/24 02/06/24 02/05/24 History extended release escitalopram oxalate 5 mg tablet 5 mg PO DAILY 02/06/24 02/06/24 02/05/24 History fexofenadine 180 mg tablet 180 mg PO DAILY 02/06/24 02/06/24 02/05/24 History (Maggie Allergy) hydrochlorothiazide 25 mg tablet 25 mg PO DAILY 02/06/24 02/06/24 02/05/24 History Exam Height,Weight and Vital Signs: Height 5 ft 7 in Weight 182 lb 5.156 oz Last Vital Signs Temp 99.3 F 02/08/24 14:26 Pulse 87 02/08/24 14:26 Resp 16 02/08/24 14:26 BP 142/66 H 02/08/24 14:26 Pulse Ox 95 02/08/24 14:26 O2 Del Method Room Air 02/08/24 14:26 O2 Flow Rate 2 02/06/24 08:27 Oxygen Flow Rate 2 02/06/24 02:25 Pertinent Lab Results Pertinent Lab Results: Laboratory Tests 02/06/24 02/06/24 02/07/24 00:46 11:30 05:22 WBC 16.3 H 3.1 L RBC 3.96 L 3.39 L Hgb 12.7 10.9 L Hct 36.9 L 32.2 L MCV 93.2 95.0 MCH 32.1 32.2 MCHC 34.4 33.9 RDW 12.7 13.3 Plt Count 206 166 MPV 11.5 11.0 Immature Gran % (Auto) 0.5 H Neut % (Auto) 93.6 H Lymph % (Auto) 2.1 L [place] % (Auto) 3.4 Eos % (Auto) 0.2 Baso % (Auto) 0.2 Lymph # (Auto) 0.3 L [place] # (Auto) 0.6 Eos # (Auto) 0.0 Baso # (Auto) 0.0 Abs Immat Gran (auto) 0.08 H Absolute Neuts (auto) 15.3 H Absolute Nucleated RBC 0.000 0.000 Nucleated RBC % (auto) 0.0 0.0 Smear Tech's Comments VERIFIED D-Dimer High Sensitivty 343 Sodium 135 137 Potassium 3.3 3.3 Chloride 105 103 Carbon Dioxide 22 28 Anion Gap 11 L 9 L BUN 20 H 11 Creatinine 0.68 0.73 Estim Creat Clear Calc 87.6 81.5 Estimated GFR > 60 > 60 Random Glucose 113 98 Calcium 8.0 L 8.8 D Total Bilirubin 0.5 AST 30 ALT 24 Alkaline Phosphatase 67 Troponin I High Sens 6.4 Total Protein 5.9 L Albumin 3.6 Urine Color Urine Appearance Urine pH Ur Specific Switchback Urine Protein Urine Glucose (UA) Urine Ketones Urine Blood Urine Nitrite Ur Leukocyte Esterase Influenza Type A (PCR) NEGATIVE Influenza Type B (PCR) NEGATIVE RSV RNA Qual (PCR) NEGATIVE SARS-CoV-2 RNA (RT-PCR) NEGATIVE 02/07/24 11:26 WBC RBC Hgb Hct MCV MCH MCHC RDW Plt Count MPV Immature Gran % (Auto) Neut % (Auto) Lymph % (Auto) [place] % (Auto) Eos % (Auto) Baso % (Auto) Lymph # (Auto) [place] # (Auto) Eos # (Auto) Baso # (Auto) Abs Immat Gran (auto) Absolute Neuts (auto) Absolute Nucleated RBC Nucleated RBC % (auto) Smear Tech's Comments D-Dimer High Sensitivty Sodium Potassium Chloride Carbon Dioxide Anion Gap BUN Creatinine Estim Creat Clear Calc Estimated GFR Random Glucose Calcium Total Bilirubin AST ALT Alkaline Phosphatase Troponin I High Sens Total Protein Albumin Urine Color Yellow Urine Appearance Clear Urine pH 6.5 Ur Specific Switchback 1.025 Urine Protein Trace Urine Glucose (UA) Negative Urine Ketones 15 Urine Blood Negative Urine Nitrite Negative Ur Leukocyte Esterase Negative Influenza Type A (PCR) Influenza Type B (PCR) RSV RNA Qual (PCR) SARS-CoV-2 RNA (RT-PCR) Airway Mallampati Class: II TM Dist: >3cm Neck ROM: Full Loose/Missing/Broken Teeth: No Assessment and Plan Assessment Anesthesia Assessment: Anesthesia Plan Discussed and Chart Reviewed Final Anesthetic Review Family History of Problems with Anesthesia: No History of Problems with Anesthesia: No NPO: Yes ASA Class: II Final Preanesthetic Review: No Changes in Pt Med Stat, Meds/Allgs Chart Reviewed, Consent Obtained/Reviewed and Anes Risks/Benef Reviewed Patient Risk: Low Procedure Risk: Low Anesthetic Plan Anesthetic Plan: GA and Regional Block Disposition: Standard PACU
--- NOTE | 2024-02-08 19:07 | P.BOP_ITS ---
Brief Operative Note Date of Service: 02/08/24 Pre-op diagnosis: Left ankle fx/dislocation Post-op diagnosis: same Procedure: ORIF gretchen ORIF syndesmosis Implants: Vantage Surgeon: Jt Medrano MD Anesthesia: GETA and regional Was an Surgery Aide used for this Procedure?: No Estimated blood loss (mL): 50 Pathology: none sent Condition: stable Disposition: PACU
[2024-02-08] MEDS: Acetaminophen 1,000 MG/100 ML PIGGYBACK 400 MG IV (20:09)
[2024-02-09 02:50] VITALS: BP 140/75; PULSE 75; RESP 18; TEMP 36.5; O2SAT 95
[2024-02-09] MEDS: Morphine Sulfate 2 MG/ML CARTRIDGE IVPUSH (05:18)
[2024-02-09 07:07] VITALS: BP 131/68; PULSE 79; RESP 14; TEMP 36.6; O2SAT 97
[2024-02-09] MEDS: Ibuprofen 600 MG TABLET PO (07:55)
--- NOTE | 2024-02-09 09:00 | PM.PNORT ---
Subjective Subjective Date of Service: 02/09/24 Interval history: POD 1 s/p ORIf left ankle no overnight events patient was seen ambulating out of the bathroom with walker, nwb lle denies sob, cp, palpitations. Physical Exam Vital Signs: Vital Signs: Last Vital Signs Temp 98 F 02/09/24 07:07 Pulse 79 02/09/24 07:07 Resp 14 02/09/24 07:07 BP 131/68 02/09/24 07:07 Pulse Ox 97 02/09/24 07:07 O2 Del Method Room Air 02/09/24 07:07 O2 Flow Rate 1 02/08/24 23:23 Oxygen Flow Rate 2 02/06/24 02:25 BMI result Body Mass Index 28.6 Const: General: cooperative, healthy appearing and no acute distress Resp: Effort & Inspection: normal respiratory effort and able to speak in complete sentences Cardio: Rate: regular rate Peripheral pulses: Peripheral pulses 2+ throughout GI: Palpation (GI): Soft to palpation Skin: General skin exam: no rashes or lesions noted Extrem: Other: Left ankle splint intact. She is able to wiggle the stores and has good sensation. Procedures Date of Service Date of Service: 02/09/24 Progress Note: A&P Assessment and plan (1) Closed fracture dislocation of left ankle: Status: Acute Assessment and Plan: Cont pain mgmnt NWB LLE elevate above heart f/u with ortho in 1 week Time Spent With Patient Time: Total time managing care of this patient today ____ minutes. Quality Stroke Does the patient have a stroke diagnosis?: No VTE Prior VTE?: No VTE Risk Level:: Medical - moderate - high VTE Device Contraindication: Treatment Not Indicated VTE Drug Contraindication: N/A - Med Ordered
[2024-02-09] MEDS: Escitalopram Oxalate 5 MG TABLET PO (09:07)
[2024-02-09] MEDS: hydroCHLOROthiazide 25 MG TABLET PO (09:07)
[2024-02-09] MEDS: buPROPion HCl XL 300 MG TAB.ER.24H PO (09:07)
[2024-02-09] MEDS: Loratadine 10 MG TABLET PO (09:08)
[2024-02-09] MEDS: 0.9 % Sodium Chloride Flush 3 ML SYRINGE IVFLUSH (09:10)
[2024-02-09 09:11] VITALS: BP 131/68; PULSE 79; O2SAT 97
[2024-02-09] MEDS: Acetaminophen 325 MG TABLET 650 MG PO (09:24)
[2024-02-09] MEDS: Fluticasone Propionate Nasal 16 GM SPRAY 1 SPRAY NOSTRIL-B (09:25)
--- NOTE | 2024-02-09 09:40 | P.DS_ITS ---
DS: Providers Provider Date of Service: 02/09/24 Date of admission: 02/06/24 10:31 Primary care physician: Stan Winn MD Consults: 02/06/24 10:28 Consult to Orthopedics Routine Consulting Provider: [facility] Reason for consultation: Left ankle fracture Has provider been notified: No DS: Diagnosis Discharge Diagnosis (1) Closed fracture dislocation of left ankle: Status: Acute DS: Summary Hospital Course Hospital Course: with HTN takes HCTZ here with fall and left caryn injuy. After dinner yesterday, she had nausea and vomitting and while going to bathroom ritu dzzy and felt, didn't pass out. She injured the left ankle. Xray showed distal fibular and medial malleolus fractures and tibiotalar dislocation.She was to be discharged home, however while sleeping in the ED noted to have drop in O2 sat to below 90, at rest saturating 98 % on room. She has no chest pain or shortness of breath. When attempted to ambulate also O2 dropped and is thus been admitted Hospital course: Patient presented with fall and left ankle injury as noted above. She was noted to have some episode of hypoxia while asleep and she had overnight O2 study and qulifies for 2 liter of O2. Her O2 sat is normal during awake times. She underwent operative fixation of the ankle by Ortho is recommended for NWB for 6 weeks. Her pain is controlled and will be discharged with oxycodone. Physical therapy recommend home with family support. Disposition: home today. Follow up with ortho in 7 days Time Attestation Discharge Coordination Time (in mins): 65 Quality: Safe Use of Opioids Does Pt have an Active Cancer Diagnosis on the Problem List?: No Quality: Stroke Does the patient have a stroke diagnosis?: No Physical Exam Vital Signs: Vital Signs: Last Vital Signs Temp 98 F 02/09/24 07:07 Pulse 79 02/09/24 09:11 Resp 14 02/09/24 07:07 BP 131/68 02/09/24 09:11 Pulse Ox 97 02/09/24 09:11 O2 Del Method Room Air 02/09/24 07:07 O2 Flow Rate 1 02/08/24 23:23 Oxygen Flow Rate 2 02/06/24 02:25 BMI result Body Mass Index 28.6 Const: Other: General: AO X 3, no acute distress Resp: CTA bilateral CVS: S1,S2,RRR GI: +BS, NT, no distention Skin: No rash MSK:Left ankle splint Neuro: motor grossly intact Psych: appropriate affect Discharge Plan Discharge Anticipated Discharge Date/Time: 02/09/24 09:43 Patient Disposition: Home, Self-Care Discharge Diagnosis: Left ankle fracture, hypoxia Referrals: Stan Winn MD [Primary Care Provider] - 1 Week Discharge Medications: New oxycodone 5 mg tablet 5 mg PO Q6H PRN (Reason: pain) Qty: 30 0RF Rx Instructions: Partial Fill upon patient request. Continued hydrochlorothiazide 25 mg tablet 25 mg PO DAILY bupropion HCl 300 mg tablet extended release 24 hr 300 mg PO DAILY escitalopram oxalate 5 mg tablet 5 mg PO DAILY fexofenadine [Maggie Allergy] 180 mg Tablet 180 mg PO DAILY fluticasone propionate [Flonase] 50 mcg/actuation [place],Suspension 1 spray INTRANASAL DAILY Rx Instructions: administer into each nostril Discharge Orders: Discharge Order (Routine); Ordered 02/09/24 Ordered By: Nigel Bautista Diet: Advance to usual diet Activity on Discharge: As tolerated Stand Alone Forms: Patient Portal Discharge page Print Language: Omani Activity Restrictions/Additional Instructions: Keep splint clean, dry, and intact Elevate throughout the day Nonweightbearing x 6 weeks Do not bathe or shower--keep splint dry Call [facility] orthopedics with any questions or concerns. Follow up with orthopedics in 7-10 days post op Care Plan Goals: see above Health Concerns: left ankle fracture hypoxia at night Plan of Treatment: see above, oxycodone for pain Use 2 liter of oxygen at night to sleep Assessment: ankle fracture that required surgery, non weight bearing for 6 weeks, oxycodone for pain Patient Instructions: Leg Fracture (ED)
--- NOTE | 2024-02-09 09:46 | W.MHC.F2F ---
Service Date Service Date: 02/09/24 Encounter Date of encounter: 02/09/24 Reasons for Services Signs and symptoms assessed: Left ankle fracture, and nonweightbearing for 6 weeks Reason for physical therapy: therapeutic exercises, gait/transfer training and energy conservation Homebound: Leaving the home is medically contraindicated at this time without the asist of a device and/or another person due th the listed conditions above and below. Reason homebound: unsteady gait / fall risk and other ( ankle fracture) Homebound supporting statement: homebound due to nonweightbearing status from ankle fracture Certification: Based on the above findings, I certify that this patient is confined to the home and needs intermittent shelter care, physical therapy and/or speech therapy, or continues to need occupational therapy. The patient is under my care, and I have initiated the establishment of the plan of care. The patient will be followed by a physician who will periodically review the plan of care. Time Spent With Patient Time: Total time managing care of this patient today ____ minutes.
--- NOTE | 2024-02-09 10:13 | MHC.CM.PN ---
Addendum entered by Maritza Triplett RN 02/09/24 11:38: Patient aware of plan and agreeable. at bedside to transport home. Addendum entered by Maritza Triplett RN 02/09/24 11:34: PT now recommending home w/ services. MD aware. [facility] aware of dc. Original Note: EMR reviewed. Per MD rounds patient is medically cleared for dc home. PT not recommending home services at this time. Patient's will provide transportation home. IMM was delivered 02/06.
[2024-02-09 11:31] VITALS: BP 131/68; PULSE 79; O2SAT 97
--- NOTE | 2024-02-12 11:44 | W.PM.OPN ---
Operative Note Operative Note Date of Service: 02/08/24 Narrative: Date of Service: 02/08/24 Pre-op diagnosis: Left ankle fx/dislocation Post-op diagnosis: same Procedure: ORIF gretchen ORIF syndesmosis Implants: Reynolds Surgeon: Jt Medrano MD Anesthesia: GETA and regional Was an Automatic Clipper used for this Procedure?: No Estimated blood loss (mL): 50 Pathology: none sent Condition: stable Disposition: PACU Procedure in detail: Patient was brought to the operating room and placed supine on the operative table. All bony prominences were well padded and a time-out was called to identify proper site proper procedure proper surgeon. IV antibiotics per weight were administered. I began by exsanguinating limb is slightly tourniquet to 300 mm Hg. I then made a standard posterolateral incision over the fibula. Full-thickness flaps were taken down to the fibular shaft and distal fibula. The fracture was identified and cleaned with a combination of curette, rongeur and irrigation. A lobster claw was used to provisionally reduce the fracture and a 6 hole distal fibular locking plate was applied using standard AO technique. Biplanar fluoroscopy was used to confirm hardware position and fracture reduction. Once I was satisfied that both of these were acceptable I irrigated copiously and turned my attention to the medial side. The transverse medial malleolar fracture was identified after skin incision. Full-thickness skin flaps were developed and, With a sharp tenaculum, the fracture was reduced. 2 threaded K-wires were then placed from distal to proximal and perpendicular to the fracture. Biplanar fluoroscopy was used to confirm positioning and then they were overdrilled and 2 40 mm 4.0 partially-threaded cannulated cancellous screws were placed across the fracture. I was satisfied with the position and the fracture reduction based on biplanar fluoroscopy. This syndesmosis was tested using external rotation test and there was in increase in the medial clear spaced and I elected to place a syndesmosis implant. Drilling through the lateral plate and from lateral to medial and posterior to anterior a steinmen pin was used. The fiberwire tightrope was passed and the button positioned on the medial cortex of the tibia and into the lateral fibular plate. This was tightened and tied. Final stress radiographs were obtained and I was satisfied with the stability and the hardware position and fracture alignement on orthogonal views. Therefore all instrumentation was removed and copious irrigation was performed. Absorbable suture and sergei were used for closure and the patient was placed into sterile dressings and a well-padded posterior splint. Tourniquet was let down and the patient was extubated brought to recovery room in stable condition there were no known complications.
== END 2024-02-09 11:56 | disposition home health service (06) | DRG 494 ==
LOC: HO.ED 02-06 06:41 → HO.EDOVER 02-06 10:36 → HO.S3 02-07 05:20
PROVIDERS: Orthopaedic Surgery; Admitting Provider Internal Medicine; Emergency Provider Internal Medicine; PCP Internal Medicine; Visit Provider Internal Medicine
PROC: 0QSH04Z Reposition Left Tibia with Internal Fixation Device, Open Approach (ICD-10-PCS; principal; 2024-02-08 16:30)
DX: S82.62XA Displaced fracture of lateral malleolus of left fibula, initial encounter for closed fracture (principal); W19.XXXA Unspecified fall, initial encounter; E86.0 Dehydration; G89.18 Other acute postprocedural pain; E78.00 Pure hypercholesterolemia, unspecified; G47.30 Sleep apnea, unspecified; Z20.822 Contact with and (suspected) exposure to COVID-19; Z79.51 Long term (current) use of inhaled steroids; Z79.899 Other long term (current) drug therapy
CPT/HCPCS: 0241U; 36415; 70450; 71045; 73590; 73610; 80048; 80053; 81003; 84484; 85025; 85027; 85379; 93005; 97116; 97162; 99285; C1713; J0131; J0736; J1170; J1650; J1885; J2250; J2270; J2405; J2704; J3010

== ENCOUNTER → 2024-02-06 00:34 | Outpatient (BNV) | payer MEDICARE, SELFPAY | PROVIDERS: Admitting Provider Internal Medicine; Emergency Provider Internal Medicine; PCP Internal Medicine; Visit Provider Internal Medicine Cardiovascular Disease | DX: R55 Syncope and collapse (principal) | CPT/HCPCS: 93010 ==

== ENCOUNTER → 2024-02-06 10:31 | Outpatient (BNV) | payer MEDICARE, SELFPAY | PROVIDERS: Admitting Provider Internal Medicine; Emergency Provider Internal Medicine; PCP Internal Medicine; Visit Provider Internal Medicine | DX: S82.892A Other fracture of left lower leg, initial encounter for closed fracture (principal) | CPT/HCPCS: 99223; 99232; 99239; G0180 ==

== ENCOUNTER → 2024-02-06 10:31 | Outpatient (BNV) | payer MEDICARE, SELFPAY | PROVIDERS: Admitting Provider Internal Medicine; Emergency Provider Internal Medicine; PCP Internal Medicine; Visit Provider Physician Assistant | DX: S82.892A Other fracture of left lower leg, initial encounter for closed fracture (principal) | CPT/HCPCS: 27814; 99024; 99222 ==

== ENCOUNTER 2024-02-18 12:43 | Outpatient (REF) | payer MEDICARE, SELFPAY ==
--- NOTE | ~2024-02-18 | XR_ITS ---
EXAMINATION: XR ANKLE, LEFT CLINICAL INFORMATION: Pain in left ankle and foot, splint off. COMPARISON: 02/06/2024, 02/08/2024. TECHNIQUE: AP, lateral, and mortise views of the left ankle. FINDINGS: Redemonstration of expected changes status post ORIF left ankle with plate and screws transfixing a previously noted distal fibular fracture with mild displacement of fracture fragments. Diffuse soft tissue swelling. Mild asymmetric widening along the medial aspect of the tibiotalar space. Surgical screws and hardware transfix previously noted tibiotalar dislocation. Reduction of previously noted subluxation of the tibia relative to the talus. XR/XR ankle LT min 3V IMPRESSION: Redemonstration of expected changes status post ORIF left ankle with plate and screws transfixing a previously noted distal fibular fracture with mild displacement of fracture fragments. Diffuse soft tissue swelling. Mild asymmetric widening along the medial aspect of the tibiotalar space. Surgical screws and hardware transfix previously noted tibiotalar dislocation. Reduction of previously noted subluxation of the tibia relative to the talus.
== END 2024-02-18 12:44 | disposition home or self-care (01) ==
LOC: HO.HOSX 12:43
PROVIDERS: Visit Provider Physician Assistant
DX: S82.892D Other fracture of left lower leg, subsequent encounter for closed fracture with routine healing (principal); M25.572 Pain in left ankle and joints of left foot; X58.XXXD Exposure to other specified factors, subsequent encounter
CPT/HCPCS: 29515; 73610; 99212

== ENCOUNTER 2024-02-18 13:02 | Outpatient (AMB) | payer MEDICARE, SELFPAY ==
--- NOTE | 2024-02-18 13:37 | MHC.OFFVIS ---
Intake Visit Reasons: PO-orif left ankle 02/08/24 NE Intake Note: Uzair 68 yr old female presents today for her p/o visit for her left ankle ORIF done with Dr. Medrano on 02/08/24. Xrays updated in office. States she has pain and is taking her pain medication as needed. Allergies Penicillins [PENICILLINS] Allergy (Unknown, Verified 02/18/24 13:38) RASH HPI HPI PO-orif left ankle 02/08/24 NE: Details: 68-year-old female who returns to the office today for post-op left ankle ORIF, 02/08/[address] Medrano. She states she is doing well however she continues to have some pain in her ankle. She is taking her pain medication as needed and would like to have a refill. She has no concerns today. [facility] Medical History Depression Elevated cholesterol HTN (hypertension) Surgical History Hx of hemorrhoidectomy H/O colonoscopy Social History Household Members: Spouse Housing: House Do you presently have visiting nurse or other home services: No Patient Tobacco Use Status: Never used Tobacco service: No Review of Systems Const All systems reviewed & are unremarkable except as noted in HPI and below Physical Exam Extrem Other: Left ankle: Incision clean, dry and intact. She does have with diffuse swelling over the dorsum of the foot and into the ankle. No drainage. NVi. Office Procedures Casting/Splints [id number] Leg splint application Procedure code (CPT) selection complete Results Reviewed Results Reviewed: X-rays of the left ankle obtained in the office today show intact orthopedic hardware with ankle mortise intact. Assessment & Plan Assessment & Plan (1) Closed fracture dislocation of left ankle: Code(s): S82.892A - Other fracture of left lower leg, initial encounter for closed fracture Category: Medical Qualifiers: Encounter type: subsequent encounter Fracture healing: with routine healing Qualified Code(s): S82.892D - Other fracture of left lower leg, subsequent encounter for closed fracture with routine healing Plan Due to amount of swelling, she was placed back in a posterior leg splint. She will remain non weight bearing up to 6 weeks post op. I did explain her the importance of elevation above hert level. She will see me back in one week for staple removal and cast application. Orders: Orders XR ankle LT min 3V 02/18/24 M25.572 - Pain in left ankle and joints of left foot Patient Instructions: Scribed for Kathleen Chi PA-C, by Nick Dave medical parasitologist, on 02/18/2024 at 1:30 PM KIRAN. Kathleen Overton PA-C, have personally reviewed and agree with the information entered by the scribe.
== END 2024-02-18 14:27 | disposition home or self-care (01) ==
PROVIDERS: PCP Internal Medicine; Visit Provider Physician Assistant
DX: S82.892D Other fracture of left lower leg, subsequent encounter for closed fracture with routine healing (principal)
CPT/HCPCS: 29515; 99024

== ENCOUNTER 2024-02-25 12:39 | Outpatient (AMB) | payer MEDICARE, SELFPAY ==
--- NOTE | 2024-02-25 12:54 | MHC.OFFVIS ---
Intake Visit Reasons: PO-orif left ankle 02/08/24 NE Intake Note: Uzair a 68 year old female who presents today for a post operative wound check s/p left ankle ORIF on 02/08/24. Patient reports that she had a dressing change by her daughter on 02/21/24. Allergies Penicillins [PENICILLINS] Allergy (Unknown, Verified 02/25/24 13:07) RASH HPI HPI PO-orif left ankle 02/08/24 NE: Details: 68-year-old female who returns to the office today for post-op wound check of left ankle ORIF, 02/08/[address] Medrano. She reports she had a dressing change by her daughter on 02/21/24. She currently states she has drainage along the incision. She has been non weight bearing. She is doing well otherwise and has no concerns today. [facility], [facility] Medical History Depression Elevated cholesterol HTN (hypertension) Surgical History Hx of hemorrhoidectomy H/O colonoscopy Social History Household Members: Spouse Housing: House Do you presently have visiting nurse or other home services: No Patient Tobacco Use Status: Never used Tobacco service: No Review of Systems Const All systems reviewed & are unremarkable except as noted in HPI and below Physical Exam Extrem Other: Left ankle: Incision is intact. There is some moisture around the incision with serous drainage. Pulses and sensation are intact. Assessment & Plan Assessment & Plan (1) Closed fracture dislocation of left ankle: Code(s): S82.892A - Other fracture of left lower leg, initial encounter for closed fracture Category: Medical Qualifiers: Encounter type: subsequent encounter Fracture healing: with routine healing Qualified Code(s): S82.892D - Other fracture of left lower leg, subsequent encounter for closed fracture with routine healing Plan Dr. Medrano was available to see the patient with me today. The plan is to leave in the sergei and performed dressing changes daily. She was given a blue night splint which she will wear, continue non weight bearing. She will see me back next week for wound check and potential staple removal, sooner if needed. Medications: New sulfamethoxazole-trimethoprim 800-160 mg (Bactrim DS) 1 tab PO BID 20 tabs 0RF suture abscess 10 days Patient Instructions: Scribed for Kathleen Chi PA-C, by Nick Dave medical librarian, on 02/25/2024 at 1:00 PM EST. I, Kathleen Chi PA-C, have personally reviewed and agree with the information entered by the scribe. Coding Level of Care Code Global (76659) Diagnoses Closed fracture dislocation of left ankle with routine healing, subsequent encounter S82.892D Encounter type: subsequent encounter Fracture healing: with routine healing
== END 2024-02-25 13:45 | disposition home or self-care (01) ==
PROVIDERS: PCP Internal Medicine; Visit Provider Physician Assistant
DX: S82.892D Other fracture of left lower leg, subsequent encounter for closed fracture with routine healing (principal)
CPT/HCPCS: 99024

== ENCOUNTER → 2024-02-25 12:39 | Outpatient (BNVA) | payer MEDICARE, SELFPAY | PROVIDERS: PCP Internal Medicine; Visit Provider Physician Assistant | DX: S82.892D Other fracture of left lower leg, subsequent encounter for closed fracture with routine healing (principal); Z98.890 Other specified postprocedural states; X58.XXXD Exposure to other specified factors, subsequent encounter | CPT/HCPCS: 99212 ==

== ENCOUNTER 2024-03-03 09:20 | Outpatient (AMB) | payer MEDICARE, SELFPAY ==
--- NOTE | 2024-03-03 09:21 | MHC.OFFVIS ---
Vital Signs 03/03/24 09:24 Height 5 ft 8 in Weight 165 lb BMI 25.1 Intake Visit Reasons: PO-orif left ankle 02/08/24 NE Intake Note: Uzair is a 68 year old female who presents for her post operative appointment s/p orif left ankle on 02/08/24 NE. Patient reports her pain comes and goes and she states that it is still leaking, she has been changing the dressings at least once a day and her swelling has gone down. Allergies Penicillins [PENICILLINS] Allergy (Unknown, Verified 03/06/24 11:37) RASH HPI HPI PO-orif left ankle 02/08/24 NE: Details: 68-year-old female who returns to the office today for post-op left ankle ORIF, 02/08/[address] Medrano. She states she has improvement in her swelling however she continues to have intermittent pain in her ankle. She reports the incision has been still leaking and she performs dressing changes at least once a day. She is doing well otherwise and has no concerns today. [facility]LY [facility] Medical History Depression Elevated cholesterol HTN (hypertension) Surgical History Hx of hemorrhoidectomy H/O colonoscopy Social History (Updated 03/03/24 @ 09:28 by Cecille Carrillo CMA) Household Members: Spouse Housing: House Do you presently have visiting nurse or other home services: No Patient Tobacco Use Status: Never used Tobacco service: No Current occupational status: retired Review of Systems Const All systems reviewed & are unremarkable except as noted in HPI and below Physical Exam Vital Signs: BMI result Body Mass Index 25.1 Extrem Other: Left ankle: Incision is intact. There is some moisture around the incision with serous drainage. Pulses and sensation are intact. Assessment & Plan Assessment & Plan (1) Closed fracture dislocation of left ankle: Code(s): S82.892A - Other fracture of left lower leg, initial encounter for closed fracture Category: Medical Qualifiers: Encounter type: subsequent encounter Fracture healing: with routine healing Qualified Code(s): S82.892D - Other fracture of left lower leg, subsequent encounter for closed fracture with routine healing (2) Skin infection: Code(s): L08.9 - Local infection of the skin and subcutaneous tissue, unspecified Category: Medical Plan She was given a refill on her antibiotics which she will continue for another week along with oxycodone. She will pull the packing from the left ankle in 36 hours and apply dry dressing changes with an with jairo wrap. She will continue to perform dry dressing changes if it gets saturated. She will see us back on Wednesday for a wound check. Medications: Changed From oxycodone Partial Fill upon patient request. 5 mg PO Q6H PRN 30 tabs 0RF pain To oxycodone Partial Fill upon patient request. 5 mg PO BID PRN 14 tabs 0RF pain 7 days Refilled sulfamethoxazole-trimethoprim 800-160 mg (Bactrim DS) 1 tab PO BID 20 tabs 0RF suture abscess 10 days Patient Instructions: Scribed for Kathleen Chi PA-C, by Nick Dave medical program specialist, on 03/03/2024 at 9:30 AM EST. I, Kathleen Chi PA-C, have personally reviewed and agree with the information entered by the scribe. Coding Level of Care Code Global (22335) Diagnoses Closed fracture dislocation of left ankle with routine healing, subsequent encounter S82.892D Encounter type: subsequent encounter Fracture healing: with routine healing Skin infection L08.9
[2024-03-03 09:24] VITALS: BMI 25.1
== END 2024-03-03 10:13 | disposition home or self-care (01) ==
PROVIDERS: PCP Internal Medicine; Visit Provider Physician Assistant
DX: S82.892D Other fracture of left lower leg, subsequent encounter for closed fracture with routine healing (principal); L08.9 Local infection of the skin and subcutaneous tissue, unspecified
CPT/HCPCS: 99024

== ENCOUNTER → 2024-03-03 09:20 | Outpatient (BNVA) | payer MEDICARE, SELFPAY | PROVIDERS: PCP Internal Medicine; Visit Provider Physician Assistant | DX: S82.892D Other fracture of left lower leg, subsequent encounter for closed fracture with routine healing (principal); L08.9 Local infection of the skin and subcutaneous tissue, unspecified | CPT/HCPCS: 99212 ==

== ENCOUNTER 2024-03-06 11:24 | Outpatient (AMB) | payer MEDICARE, SELFPAY ==
--- NOTE | 2024-03-06 11:31 | A.OFFVIS_ITS ---
Vital Signs 03/06/24 11:36 Height 5 ft 8 in Weight 165 lb BMI 25.1 Intake Visit Reasons: PO-orif left ankle 02/08/24 NE Intake Note: Uzair is a 68 year old female who presents today for a post op wound check, ORIF left ankle, 02/08/24 by NE. Patient reports pain has improved but still present intermittently, 6 on a 0-10 pain scale. Electrical Repairer Required: No Accompanied by: Spouse Allergies Penicillins [PENICILLINS] Allergy (Unknown, Verified 03/06/24 11:37) RASH HPI HPI PO-orif left ankle 02/08/24 NE: Details: 68-year-old female who returns to the office today for post-op wound check for left ankle ORIF, 02/08/[address] Medrano. She states she has improvement however she continues to have intermittent pain in her ankle. She rates the pain as 6 on the scale of 0-10. She is doing well otherwise and has no concerns today. [facility] Medical History Depression Elevated cholesterol HTN (hypertension) Surgical History Hx of hemorrhoidectomy H/O colonoscopy Social History (Updated 03/03/24 @ 09:28 by Cecille Carrillo CMA) Household Members: Spouse Housing: House Do you presently have visiting nurse or other home services: No Patient Tobacco Use Status: Never used Tobacco service: No Current occupational status: retired Review of Systems Const All systems reviewed & are unremarkable except as noted in HPI and below Physical Exam Vital Signs: BMI result Body Mass Index 25.1 Extrem Other: Left ankle: Purulant drainage along the medial and lateral incision with tenderness. Pulses and sensation are intact. Assessment & Plan Assessment & Plan (1) Closed fracture dislocation of left ankle: Code(s): S82.892A - Other fracture of left lower leg, initial encounter for closed fracture Category: Medical Qualifiers: Encounter type: subsequent encounter Fracture healing: with routine healing Qualified Code(s): S82.892D - Other fracture of left lower leg, subsequent encounter for closed fracture with routine healing (2) Skin infection: Code(s): L08.9 - Local infection of the skin and subcutaneous tissue, unspecified Category: Medical Plan Given the ongoing amount of purulent drainage from the incision site, the decision was made to bring her to OR on Wednesday for left ankle I&D which she is content with. She will be NPO aftermidnight on Wednesday. We discussed risk, benefits, and alternatives, risks including but not limited to ongoing infection, need to remove hardware, damage to soft tissues or nerves, nonunion and malunion of the bones. She does understand all this and would like to proceed accordingly. Patient Instructions: Scribed for Kathleen Chi PA-C, by Nick Dave medical device assembler, on 03/06/2024 at 11:45 AM EST. I, Kathleen Chi PA-C, have personally reviewed and agree with the information entered by the scribe. Coding Level of Care Code Global (07358) Diagnoses Closed fracture dislocation of left ankle with routine healing, subsequent encounter S82.892D Encounter type: subsequent encounter Fracture healing: with routine healing Skin infection L08.9
[2024-03-06 11:36] VITALS: BMI 25.1
== END 2024-03-06 11:51 | disposition home or self-care (01) ==
PROVIDERS: PCP Internal Medicine; Visit Provider Physician Assistant
DX: S82.892D Other fracture of left lower leg, subsequent encounter for closed fracture with routine healing (principal); L08.9 Local infection of the skin and subcutaneous tissue, unspecified
CPT/HCPCS: 99024

== ENCOUNTER → 2024-03-06 11:24 | Outpatient (BNVA) | payer MEDICARE, SELFPAY | PROVIDERS: PCP Internal Medicine; Visit Provider Physician Assistant | DX: S82.892D Other fracture of left lower leg, subsequent encounter for closed fracture with routine healing (principal); L08.9 Local infection of the skin and subcutaneous tissue, unspecified | CPT/HCPCS: 99212 ==

== ENCOUNTER 2024-03-08 10:58 | Day surgery (SDC) | payer MEDICARE, SELFPAY ==
[2024-03-08] VITALS (9 sets, daily range): BP systolic 117–149; BP diastolic 63–79; PULSE 80–92; RESP 10–20; TEMP 36.9–37.3; O2SAT 94–96; BMI 25.1
--- NOTE | 2024-03-08 12:09 | HO.ANESPROP2 ---
[facility] Active Problems Active Problems: All Active Problems Skin infection (Acute) Closed fracture dislocation of left ankle (Acute) Past Medical History Medical History (Updated 03/06/24 @ 20:57 by Kathleen Chi PA-C) Depression Elevated cholesterol HTN (hypertension) Family History Family history of problems with anesthesia: No Surgical History Surgical History (Updated 03/08/24 @ 11:51 by Angela Goss RN) History of ankle surgery Hx of hemorrhoidectomy H/O colonoscopy History of Problems with Anesthesia: No Social History Social History (Updated 03/03/24 @ 09:28 by Cecille Carrillo CMA) Household Members: Spouse Housing: House Do you presently have visiting nurse or other home services: No Patient Tobacco Use Status: Never used Tobacco Use of substances other than those prescribed or required for medical reasons: No Are you DNR?: No Advance Directives: No Advance Directives Information Provided: Yes service: No Current occupational status: retired Meds Allergies Allergy/AdvReac Type Severity Reaction Status Date / Time Penicillins [PENICILLINS] Allergy Unknown RASH Verified 03/06/24 11:37 Home Medications ?Medication ?Instructions ?Recorded ?Confirmed ?Last Taken ?Type fluticasone propionate 50 1 spray intranasal DAILY 12/24/23 02/06/24 02/05/24 History mcg/actuation nasal spray,suspension bupropion HCl 300 mg 24 hr tablet, 300 mg PO DAILY 02/06/24 03/08/24 03/08/24 History extended release escitalopram oxalate 5 mg tablet 5 mg PO DAILY 02/06/24 03/08/24 03/08/24 History fexofenadine 180 mg tablet 180 mg PO DAILY 02/06/24 03/08/24 03/08/24 History (Maggie Allergy) hydrochlorothiazide 25 mg tablet 25 mg PO DAILY 02/06/24 02/06/24 02/05/24 History Exam Height,Weight and Vital Signs: Height 5 ft 8 in Weight 74.843 kg Airway Mallampati Class: II (small mouth opening) TM Dist: >3cm Neck ROM: Full Heart: rrr Lungs: cta Assessment and Plan Assessment Anesthesia Assessment: Anesthesia Plan Discussed and Chart Reviewed Final Anesthetic Review Family History of Problems with Anesthesia: No History of Problems with Anesthesia: No NPO: Yes ASA Class: II Final Preanesthetic Review: No Changes in Pt Med Stat, Meds/Allgs Chart Reviewed and Consent Obtained/Reviewed Patient Risk: Low Procedure Risk: Low Anesthetic Plan Anesthetic Plan: GA Disposition: Standard PACU
--- NOTE | 2024-03-08 12:45 | MHC.SHP ---
Pre-Procedural Eval Section A - 24 Hr Update-Section A only Date of Service: 03/08/24 The patient is an INPATIENT: No Changes since office visit: No Cold of Flu in the past 2 weeks, No New Medical Problems, No Changes in Medication and No Patient answered all questions The patient has been examined within 24 hours of the surgical procedure. The History & Physical has been completed within 30 days and I have reviewed it.: Yes Section B - Complete if H&P > 30 days Chief Complaint: fxof left lower leg, infection Allergies: Allergies Allergy/AdvReac Type Severity Reaction Status Date / Time Penicillins [PENICILLINS] Allergy Unknown RASH Verified 03/06/24 11:37 Plan I have reviewed the history and physical and performed a pertinent physical examination on my patient. No changes have occurred unless specified. Time Spent With Patient Time: Total time managing care of this patient today ____ minutes.
[2024-03-08] MEDS: oxyCODONE HCl Immed Release 5 MG TABLET PO (13:55)
[2024-03-08] MEDS: fentaNYL citrate/PF 100 MCG/2 ML VIAL 50 MCG IVPUSH (14:20)
--- NOTE | 2024-03-08 15:12 | PM.OP ---
Brief Operative Note Date of Service: 03/08/24 Pre-op diagnosis: Left ankle infection Post-op diagnosis: same Procedure: Irrigation and debridement left ankle Placement of negative pressure dressing Surgeon: Jt Medrano MD Anesthesia: GETA Was an Director Student Union used for this Procedure?: No Estimated blood loss (mL): 25 IV fluids (mL): 400 Pathology: other Condition: stable Disposition: PACU
--- NOTE | 2024-03-16 07:39 | W.PM.OPN ---
Operative Note Operative Note Date of Service: 03/08/24 Narrative: Date of Service: 03/08/24 Pre-op diagnosis: Left ankle infection Post-op diagnosis: same Procedure: Irrigation and debridement left ankle Placement of negative pressure dressing Surgeon: Jt Medrano MD Anesthesia: GETA Was an Envelope Press Operator used for this Procedure?: No Estimated blood loss (mL): 25 IV fluids (mL): 400 Pathology: other Condition: stable Disposition: PACU Patient was brought to the operating room and placed supine on the surgical table. She was prepped and draped in standard sterile fashion and a time out was called to identify proper site, proper procedure and IV antibiotics per weight were administered. I began by examining the medial wound. There was a small area of skin breakdown with drainage that was posterior adn proximal to the healed incision. I debrided this and used a currette to remove fibrinous material. It did track posteriorly down to bone but there was no exposed hardware. I debrided the necrotic tissue and irrigated copiously. I then turned my attention to the lateral side. Here, at the proximal portion of the incision there was a 1 cm area of wound erythema and discharge. This too was debrided and necrotic tissue was remove. This also tracked down to bone and the plate, while not exposed, was palpable. I irrigated copiously and partially closed this wound with nylon. A sterile vacuum assisted dressing was applied to both the medial wound and the lateral wound. Cultures were obtained. Patient was then extubated brought to recovery room stable condition. There were no known complications.
== END 2024-03-08 15:39 | disposition home or self-care (01) ==
LOC: HO.SSS 11:00
PROVIDERS: PCP Internal Medicine; Visit Provider Orthopaedic Surgery
PROC: (CPT 11044; principal; 2024-03-08 13:00)
DX: T81.41XA Infection following a procedure, superficial incisional surgical site, initial encounter (principal); L08.9 Local infection of the skin and subcutaneous tissue, unspecified; G89.18 Other acute postprocedural pain; M25.572 Pain in left ankle and joints of left foot; S82.892D Other fracture of left lower leg, subsequent encounter for closed fracture with routine healing; Y83.8 Other surgical procedures as the cause of abnormal reaction of the patient, or of later complication, without mention of misadventure at the time of the procedure; Y79.2 Prosthetic and other implants, materials and accessory orthopedic devices associated with adverse incidents; Y92.9 Unspecified place or not applicable; I10 Essential (primary) hypertension; E78.00 Pure hypercholesterolemia, unspecified; F32.A Depression, unspecified; Z79.899 Other long term (current) drug therapy; Z88.0 Allergy status to penicillin
CPT/HCPCS: 11044; 97605; 87070; 87077; 87186; 87205; J0736; J1100; J2250; J2371; J2405; J2795; J3010

== ENCOUNTER → 2024-03-08 10:58 | Outpatient (BNV) | payer MEDICARE, SELFPAY | PROVIDERS: PCP Internal Medicine; Visit Provider Orthopaedic Surgery | DX: L08.9 Local infection of the skin and subcutaneous tissue, unspecified (principal) | CPT/HCPCS: 11044; 97605 ==

== ENCOUNTER 2024-03-16 14:22 | Outpatient (AMB) | payer MEDICARE, SELFPAY ==
--- NOTE | 2024-03-16 14:51 | MHC.OFFVIS ---
Intake Visit Reasons: PO LT ankle I&D 03/08/24 NE Intake Note: Uzair is a 68 year old female who presents today for a post operative visit s/p left ankle I&D on 02/08/24 and 03/08/24 NE. Patient reports she is doing well, states only discomfort is in her heel. Allergies Penicillins [PENICILLINS] Allergy (Unknown, Verified 03/16/24 14:52) RASH HPI HPI PO LT ankle I&D 03/08/24 NE: Details: 68-year-old female who returns to the office today for post-op left ankle I&D, 03/08/[address] Medrano. She states she has discomfort in her heel however she is doing well otherwise. She continues to take antibiotics as instructed. She has no other concerns today. [facility] Medical History (Updated 03/06/24 @ 20:57 by Kathleen Chi PA-C) Depression Elevated cholesterol HTN (hypertension) Surgical History History of ankle surgery Hx of hemorrhoidectomy H/O colonoscopy Social History Household Members: Spouse Housing: House Do you presently have visiting nurse or other home services: No Patient Tobacco Use Status: Never used Tobacco service: No Current occupational status: retired Review of Systems Const All systems reviewed & are unremarkable except as noted in HPI and below Physical Exam Const General: cooperative and no acute distress Orientation/consciousness: patient oriented x3 Resp Effort & Inspection: normal respiratory effort and able to speak in complete sentences Cardio Peripheral pulses: Peripheral pulses 2+ throughout Neuro General: patient oriented x3 Extrem Other: Left ankle: Incision clean, dry and intact. No active drainage. No significant erythema or swelling. NVI. Assessment & Plan Assessment & Plan (1) Closed fracture dislocation of left ankle: Code(s): S82.892A - Other fracture of left lower leg, initial encounter for closed fracture Category: Medical Qualifiers: Encounter type: subsequent encounter Fracture healing: with routine healing Qualified Code(s): S82.892D - Other fracture of left lower leg, subsequent encounter for closed fracture with routine healing (2) Skin infection: Code(s): L08.9 - Local infection of the skin and subcutaneous tissue, unspecified Category: Medical Plan Dr. Medrano was available to see the patient with me today. She will continue with antibiotics and a refill was sent to the pharmacy today. A new Suzette dressing was applied at the lateral incision which she will keep on for a week and a dry dressing was applied to the medial incision which she will change daily if needed. She will continue non weight bearing with the boot and see me back next week, sooner if needed. Medications: Refilled sulfamethoxazole-trimethoprim 800-160 mg (Bactrim DS) 1 tab PO BID 20 tabs 0RF suture abscess 10 days Patient Instructions: Scribed for Kathleen Chi PA-C, by Nick Dave medical apparatus model maker, on 03/16/2024 at 2:45 PM EST.? I, Kathleen Chi PA-C, have personally reviewed and agree with the information entered by the scribe. Coding Level of Care Code Global (10943) Diagnoses Closed fracture dislocation of left ankle with routine healing, subsequent encounter S82.892D Encounter type: subsequent encounter Fracture healing: with routine healing Skin infection L08.9
== END 2024-03-16 15:38 | disposition home or self-care (01) ==
PROVIDERS: PCP Internal Medicine; Visit Provider Physician Assistant
DX: S82.892D Other fracture of left lower leg, subsequent encounter for closed fracture with routine healing (principal); L08.9 Local infection of the skin and subcutaneous tissue, unspecified
CPT/HCPCS: 99024

== ENCOUNTER → 2024-03-16 14:22 | Outpatient (BNVA) | payer MEDICARE, SELFPAY | PROVIDERS: PCP Internal Medicine; Visit Provider Physician Assistant | DX: Z47.89 Encounter for other orthopedic aftercare (principal); L08.9 Local infection of the skin and subcutaneous tissue, unspecified; S82.892D Other fracture of left lower leg, subsequent encounter for closed fracture with routine healing; Z79.2 Long term (current) use of antibiotics; Z98.890 Other specified postprocedural states | CPT/HCPCS: 99212 ==

== ENCOUNTER 2024-03-24 12:13 | Outpatient (AMB) | payer MEDICARE, SELFPAY ==
--- NOTE | 2024-03-24 12:16 | A.OFFVIS_ITS ---
Intake Visit Reasons: PO LT ankle I&D 03/08/24 NE-follow up Intake Note: Uzair is a 68 year old female who presents today for a post operative visit s/p left ankle I&D on 02/08/24 and 03/08/24 NE. Patient reports she is doing well, states no concerns today. Allergies Penicillins [PENICILLINS] Allergy (Unknown, Verified 03/24/24 12:31) RASH HPI HPI PO LT ankle I&D 03/08/24 NE-follow up: Details: 68-year-old female who returns to the office today for post-op left ankle I&D, 03/08/[address] Medrano. She states she has no pain and is doing well overall. She has no concerns today. [facility] Medical History (Updated 03/06/24 @ 20:57 by Kathleen Chi PA-C) Depression Elevated cholesterol HTN (hypertension) Surgical History History of ankle surgery Hx of hemorrhoidectomy H/O colonoscopy Social History Household Members: Spouse Housing: House Do you presently have visiting nurse or other home services: No Patient Tobacco Use Status: Never used Tobacco service: No Current occupational status: retired Review of Systems Const All systems reviewed & are unremarkable except as noted in HPI and below Physical Exam Const General: cooperative and no acute distress Orientation/consciousness: patient oriented x3 Resp Effort & Inspection: normal respiratory effort and able to speak in complete sentences Cardio Peripheral pulses: Peripheral pulses 2+ throughout Neuro General: patient oriented x3 Extrem Other: Left ankle: Incision clean, dry and intact. No active drainage. No significant erythema or swelling. NVI. Results Reviewed Results Reviewed: X-rays of the left ankle obtained in the office today show intact orthopedic hardware with ankle mortise intact. Assessment & Plan Assessment & Plan (1) Closed fracture dislocation of left ankle: Code(s): S82.892A - Other fracture of left lower leg, initial encounter for closed fracture Category: Medical Qualifiers: Encounter type: subsequent encounter Fracture healing: with routine healing Qualified Code(s): S82.892D - Other fracture of left lower leg, subsequent encounter for closed fracture with routine healing (2) Skin infection: Code(s): L08.9 - Local infection of the skin and subcutaneous tissue, unspecified Category: Medical Plan She was transitioned to a tall boot. She can begin weight bear as tolerated starting with toe touch weight bearing. She can remove the boot for rest, hygiene and sleeping and wear the night splint with sleeping. I did educate her on using caution with moisture of foot to prevent breakdown of skin and she will see me back 1 week for a skin check, sooner if needed. Orders: Orders XR ankle LT min 3V Today M25.572 - Pain in left ankle and joints of left foot Patient Instructions: Scribed for Kathleen Chi PA-C, by Nick Dave certified medical coding specialist, on 03/24/2024 at 12:30 PM EST.? I, Kathleen Chi PA-C, have personally reviewed and agree with the information entered by the scribe. Coding Level of Care Code Global (43784) Diagnoses Closed fracture dislocation of left ankle with routine healing, subsequent encounter S82.892D Encounter type: subsequent encounter Fracture healing: with routine healing Skin infection L08.9
== END 2024-03-24 13:20 | disposition home or self-care (01) ==
PROVIDERS: PCP Internal Medicine; Visit Provider Physician Assistant
DX: S82.892D Other fracture of left lower leg, subsequent encounter for closed fracture with routine healing (principal); L08.9 Local infection of the skin and subcutaneous tissue, unspecified
CPT/HCPCS: 99024

== ENCOUNTER 2024-03-24 12:13 | Outpatient (REF) | payer MEDICARE, SELFPAY ==
--- NOTE | ~2024-03-24 | XR_ITS ---
EXAMINATION: XR ANKLE, LEFT CLINICAL INFORMATION: Pain left ankle and joints of foot. COMPARISON: 02/18/2024. TECHNIQUE: AP, lateral, and mortise views of the left ankle. FINDINGS: Surgical sergei have been removed. Redemonstration of expected changes status post ORIF with plate and screws transfixing distal fibular fracture with mild displacement of fracture fragments. Diffuse soft tissue swelling. Mild redemonstration of mild asymmetric widening along the medial aspect of the tibiotalar space. Surgical screws and hardware transfix previously noted tibiotalar dislocation. Redemonstration of reduction of previously noted subluxation of the tibia relative to the talus. There is some bridging callus formation at the fracture sites. Subtle transverse lucency along the proximal shaft of the second most inferior distal fibular screw could be related to positioning versus fracture of the hardware. XR/XR ankle LT min 3V IMPRESSION: 1. Status post ORIF distal fibular and medial malleolar fracture dislocations. 2. There is some bridging callus formation at the fracture sites. 3. Subtle transverse lucency along the proximal shaft of the second most inferior distal fibular screw could be related to positioning versus fracture of the hardware.
== END 2024-03-24 12:14 | disposition home or self-care (01) ==
LOC: HO.HOSX 12:13
PROVIDERS: PCP Internal Medicine; Visit Provider Physician Assistant
DX: L08.9 Local infection of the skin and subcutaneous tissue, unspecified (principal); M25.572 Pain in left ankle and joints of left foot; S82.892D Other fracture of left lower leg, subsequent encounter for closed fracture with routine healing; X58.XXXD Exposure to other specified factors, subsequent encounter; Z98.890 Other specified postprocedural states
CPT/HCPCS: 73610; 99212

== ENCOUNTER 2024-03-31 08:58 | Outpatient (AMB) | payer MEDICARE, SELFPAY ==
--- NOTE | 2024-03-31 09:42 | A.OFFVIS_ITS ---
Intake Visit Reasons: PO LT ankle I&D 03/08/24 NE-follow up Intake Note: Uzair is a 68 year old female who presents today for a post operative visit s/p left ankle I&D on 02/08/24 and 03/08/24 NE. Patient reports she is doing well, states having soreness now in her right knee. Allergies Penicillins [PENICILLINS] Allergy (Unknown, Verified 03/31/24 09:43) RASH HPI HPI PO LT ankle I&D 03/08/24 NE-follow up: Details: 68-year-old female who returns to the office today for post-op left ankle I&D, 03/08/[address] Medrano. She states she is doing well overall however she now has soreness in her right knee. She continues to work with physical therapy as instructed. She has no other concerns today. [facility] Medical History (Updated 03/06/24 @ 20:57 by Kathleen Chi PA-C) Depression Elevated cholesterol HTN (hypertension) Surgical History History of ankle surgery Hx of hemorrhoidectomy H/O colonoscopy Social History Household Members: Spouse Housing: House Do you presently have visiting nurse or other home services: No Patient Tobacco Use Status: Never used Tobacco service: No Current occupational status: retired Review of Systems Const All systems reviewed & are unremarkable except as noted in HPI and below Physical Exam Const General: cooperative and no acute distress Orientation/consciousness: patient oriented x3 Resp Effort & Inspection: normal respiratory effort and able to speak in complete sentences Cardio Peripheral pulses: Peripheral pulses 2+ throughout Neuro General: patient oriented x3 Extrem Other: Left ankle: Incision clean, dry and intact. No active drainage. No significant erythema or swelling. NVI. Assessment & Plan Assessment & Plan (1) Closed fracture dislocation of left ankle: Code(s): S82.892A - Other fracture of left lower leg, initial encounter for closed fracture Category: Medical Qualifiers: Encounter type: subsequent encounter Fracture healing: with routine healing Qualified Code(s): S82.892D - Other fracture of left lower leg, subsequent encounter for closed fracture with routine healing (2) Skin infection: Code(s): L08.9 - Local infection of the skin and subcutaneous tissue, unspecified Category: Medical Plan Dr. Medrano was available to see the patient with me today. She will continue with antibiotics for 6 weeks and continue weight bearing as tolerated and physical therapy. She is to ambulate with only the boot on and she will see me back in 6 weeks with x-rays, sooner if needed. Medications: Changed From sulfamethoxazole-trimethoprim 800-160 mg (Bactrim DS) 1 tab PO BID 10 days 20 tabs 0RF suture abscess To sulfamethoxazole-trimethoprim 800-160 mg (Bactrim DS) 1 tab PO BID 84 tabs 0RF suture abscess 6 weeks Patient Instructions: Scribed for Kathleen Chi PA-C, by Nick Dave medical equipment repair technician, on 03/31/2024 at 9:15 AM EST.? I, Kathleen Chi PA-C, have personally reviewed and agree with the information entered by the scribe. Coding Level of Care Code Global (95473) Diagnoses Closed fracture dislocation of left ankle with routine healing, subsequent encounter S82.892D Encounter type: subsequent encounter Fracture healing: with routine healing Skin infection L08.9
== END 2024-03-31 10:24 | disposition home or self-care (01) ==
PROVIDERS: PCP Internal Medicine; Visit Provider Physician Assistant
DX: S82.892D Other fracture of left lower leg, subsequent encounter for closed fracture with routine healing (principal); L08.9 Local infection of the skin and subcutaneous tissue, unspecified
CPT/HCPCS: 99024

== ENCOUNTER → 2024-03-31 08:58 | Outpatient (BNVA) | payer MEDICARE, SELFPAY | PROVIDERS: PCP Internal Medicine; Visit Provider Physician Assistant | DX: S82.892D Other fracture of left lower leg, subsequent encounter for closed fracture with routine healing (principal); L08.9 Local infection of the skin and subcutaneous tissue, unspecified | CPT/HCPCS: 99212 ==

== ENCOUNTER 2024-05-11 08:04 | Outpatient (REF) | payer MEDICARE, SELFPAY ==
--- NOTE | ~2024-05-11 | XR_ITS ---
EXAMINATION: XR ANKLE, LEFT CLINICAL INFORMATION: Pain left ankle joints of foot. COMPARISON: March 24, 2024. TECHNIQUE: AP, lateral, and mortise views of the left ankle. FINDINGS: Status post ORIF with plate and screws transfixing distal fibular fracture. Hardware appears intact. Surgical screws and hardware spanning previously noted tibiotalar dislocation. Diffuse soft tissue swelling and joint effusion. Redemonstration of mild asymmetric widening along the medial aspect of the tibiotalar space. There has been interval bridging callus formation. Prominent plantar calcaneal spur. XR/XR ankle LT min 3V IMPRESSION: 1. Status post ORIF with plate and screws transfixing distal fibular fracture. Hardware appears intact. 2. Surgical screws and hardware spanning previously noted tibiotalar dislocation. Diffuse soft tissue swelling and joint effusion. Redemonstration of mild asymmetric widening along the medial aspect of the tibiotalar space. There has been interval bridging callus formation.
== END 2024-05-11 08:05 | disposition home or self-care (01) ==
LOC: HO.HOSX 08:04
PROVIDERS: Visit Provider Physician Assistant
DX: M25.572 Pain in left ankle and joints of left foot (principal); S82.892D Other fracture of left lower leg, subsequent encounter for closed fracture with routine healing; X58.XXXD Exposure to other specified factors, subsequent encounter; Z98.890 Other specified postprocedural states
CPT/HCPCS: 73610; 99212

== ENCOUNTER 2024-05-11 10:20 | Outpatient (AMB) | payer MEDICARE, SELFPAY ==
--- NOTE | 2024-05-11 10:50 | A.OFFVIS_ITS ---
Intake Visit Reasons: PO LT ankle I&D 03/08/24 NE Intake Note: Uzair is a 68 year old female who presents today for a post operative appoitnment s/p Left Ankle I&D 03/08/2024. Patient reports that she is doing well. She explains thaot the boot has been rubbing on the lateral aspect of the ankle and is opeinign her incision. She has been wrapping the ankle with gauze and jairo wrap to pad the area. Allergies Penicillins [PENICILLINS] Allergy (Unknown, Verified 03/31/24 09:43) RASH HPI HPI PO LT ankle I&D 03/08/24 NE: Details: Uzair is a 68 year old female who presents today for a post operative appoitnment s/p Left Ankle I&D 03/08/2024. Patient reports that she is doing well. She explains thaot the boot has been rubbing on the lateral aspect of the ankle and is opeinign her incision. She has been wrapping the ankle with gauze and jairo wrap to pad the area. When taking off the bandage there was a small amount of white/yellow drainage oozing from the lateral incision [facility] Medical History (Updated 03/06/24 @ 20:57 by Kathleen Chi PA-C) Depression Elevated cholesterol HTN (hypertension) Surgical History History of ankle surgery Hx of hemorrhoidectomy H/O colonoscopy Social History Household Members: Spouse Housing: House Do you presently have visiting nurse or other home services: No Patient Tobacco Use Status: Never used Tobacco service: No Current occupational status: retired Physical Exam Extrem Other: Wounds are almost entirely healed. The proximal aspect of the lateral wound has a small scab but no obvious drainage. Results Reviewed Results Reviewed: I personally reviewed relevant radiographs. left bimall with syndesmotic fixation without hardware complications and with anatomic healing Assessment & Plan Assessment & Plan (1) Closed fracture dislocation of left ankle: Code(s): S82.892A - Other fracture of left lower leg, initial encounter for closed fracture Category: Medical Qualifiers: Encounter type: subsequent encounter Fracture healing: with routine healing Qualified Code(s): S82.892D - Other fracture of left lower leg, subsequent encounter for closed fracture with routine healing Plan: This is a 60-year-old woman who continues to improve after a bimalleolar fracture dislocation that was complicated by skin breakdown. She has continued to take antibiotics. I would like to try to remove the hardware at about 6 months to reduce any risk of deep infection. At this point in time, however there is no evidence that it is infected but I think she remains at risk. I would like to see her walking without a boot and I will see her back in about 6 weeks. Orders: Orders XR ankle LT min 3V 05/11/24 M25.572 - Pain in left ankle and joints of left foot Coding Level of Care Code Global (27373) Diagnoses Closed fracture dislocation of left ankle with routine healing, subsequent encounter S82.892D Encounter type: subsequent encounter Fracture healing: with routine healing
== END 2024-05-11 11:12 | disposition home or self-care (01) ==
PROVIDERS: PCP Internal Medicine; Visit Provider Orthopaedic Surgery
DX: S82.892D Other fracture of left lower leg, subsequent encounter for closed fracture with routine healing (principal)
CPT/HCPCS: 99024

== ENCOUNTER 2024-06-01 13:47 | Outpatient (AMB) | payer MEDICARE, SELFPAY ==
--- NOTE | 2024-06-01 13:52 | A.OFFVIS_ITS ---
Vital Signs 06/01/24 13:53 Height 5 ft 8 in Weight 157 lb BMI 23.9 Handedness Right Intake Visit Reasons: Preop LT ankle SHAQ 06/14/24 NE Intake Note: Uzair is a 68 year old female who presents today for a pre op appointment for her left ankle SHAQ 06/14/24NE. Allergies Penicillins [PENICILLINS] Allergy (Unknown, Verified 06/01/24 13:53) RASH HPI HPI Preop LT ankle SHAQ 06/14/24 NE: Details: 68-year-old female who presents in the office today for her preoperative history and physical exam prior to a left ankle removal of hardware to be performed on 06/14/[address] Jt Medrano.? ? Patient has an allergy history, as follows:? -Penicillin; rash? ? Patient is currently taking, as follows:? -Bupropion HCI XL 300 mg PO daily? -Escitalopram oxalate 5 mg PO daily? -Fexofenadine (Maggie Allergy) 150 mg PO daily? -Fluticasone propionate 50 mcg/actuation 1 spray intranasal daily? -Sulfamethoxazole-trimethoprim 800-160 PO BID? ? Patient has a medical history, as follows:? -Depression? -Elevated cholesterol? -Hypertension? ? Patient has a surgical history, as follows:? -Hx of left ankle surgery? -Hx of hemorrhoidectomy? -Hx of colonoscopy? PFSH Medical History (Updated 03/06/24 @ 20:57 by Kathleen Chi PA-C) Depression Elevated cholesterol HTN (hypertension) Surgical History History of ankle surgery Hx of hemorrhoidectomy H/O colonoscopy Social History (Updated 06/01/24 @ 13:54 by Deep Abdullahi) Household Members: Spouse Housing: House Do you presently have visiting nurse or other home services: No Alcohol intake: current Alcohol intake frequency: holidays/special occasions only Patient Tobacco Use Status: Never used Tobacco service: No Current occupational status: retired Review of Systems Const All systems reviewed & are unremarkable except as noted in HPI and below Physical Exam Vital Signs: BMI result Body Mass Index 23.9 Const General: cooperative, healthy appearing, comfortable, no acute distress, well developed, alert and awake Orientation/consciousness: patient oriented x3 HEENT Head: Yes normal to inspection, Yes normocephalic and Yes atraumatic Eyes General: appearance normal, both eyes and all related structures Neck Neck: Yes normal visual inspection and Yes no lymphadenopathy Resp Effort & Inspection: normal respiratory effort and able to speak in complete sentences Cardio Rate: regular rate Peripheral pulses: Peripheral pulses 2+ throughout GI Inspection: Yes normal to inspection Palpation (GI): Soft to palpation Skin General skin exam: no rashes or lesions noted Neuro General: patient oriented x3 Extrem Other: Wounds are almost entirely healed. The proximal aspect of the lateral wound has a small scab but no obvious drainage. Psych Mental Status: mental status grossly normal Assessment & Plan Assessment & Plan (1) Closed fracture dislocation of left ankle: Code(s): S82.892A - Other fracture of left lower leg, initial encounter for closed fracture Category: Medical Qualifiers: Encounter type: subsequent encounter Fracture healing: with routine healing Qualified Code(s): S82.892D - Other fracture of left lower leg, subsequent encounter for closed fracture with routine healing Plan Ms. Alonso is a 68-year-old female who presents in the office today for her preoperative history and physical exam prior to a left ankle removal of hardware to be performed on 06/14/[address] Jt Medrano.? ? Patient has an allergy history, as follows:? -Penicillin; rash? ? Patient is currently taking, as follows:? -Bupropion HCI XL 300 mg PO daily? -Escitalopram oxalate 5 mg PO daily? -Fexofenadine (Maggie Allergy) 150 mg PO daily? -Fluticasone propionate 50 mcg/actuation 1 spray intranasal daily? -Sulfamethoxazole-trimethoprim 800-160 PO BID? ? Patient has a medical history, as follows:? -Depression? -Elevated cholesterol? -Hypertension? ? Patient has a surgical history, as follows:? -Hx of left ankle surgery? -Hx of hemorrhoidectomy? -Hx of colonoscopy? ? I discussed in detail the procedure and what to expect pre and post operatively. We discussed the risks, benefits, alternatives to the surgery and the rehabilitation course. The risks include infection, bleeding, nerve injury, ongoing pain, swelling, and stiffness, perioperative risk of injury to bones and soft tissues, and blood clots.?? ? I have answered all questions and with their understanding they have consented to move forward with a left ankle removal of hardware to be performed on 06/14/[address] Jt Medrano.? ? Follow-up will be at the post operative appointment on 06/23/24, or sooner if needed.? Patient Instructions: Scribed by Nikkie Vargas medical record transcriber, for Mary Perkins PA-C on 06/01/2024 at 1:48 pm, EST.? Coding Level of Care Code Global (86782) Diagnoses Closed fracture dislocation of left ankle with routine healing, subsequent encounter S82.892D Encounter type: subsequent encounter Fracture healing: with routine healing
[2024-06-01 13:53] VITALS: BMI 23.9
== END 2024-06-01 14:04 | disposition home or self-care (01) ==
PROVIDERS: PCP Internal Medicine; Visit Provider Physician Assistant
DX: S82.892D Other fracture of left lower leg, subsequent encounter for closed fracture with routine healing (principal)
CPT/HCPCS: 99024

== ENCOUNTER → 2024-06-01 13:47 | Outpatient (BNVA) | payer MEDICARE, SELFPAY | PROVIDERS: PCP Internal Medicine; Visit Provider Physician Assistant | DX: S82.892D Other fracture of left lower leg, subsequent encounter for closed fracture with routine healing (principal) | CPT/HCPCS: 99212 ==

== ENCOUNTER 2024-06-14 09:30 | Day surgery (SDC) | payer MEDICARE, SELFPAY ==
[2024-06-12 13:10] VITALS: BMI 23.9
--- NOTE | 2024-06-13 09:08 | P.CONAN_ITS ---
Documented by User: Gloria Baez NP 06/13/24 09:24 HPI - Anesthesia Eval Consult details Narrative: 69yo F for Left Ankle Removal Orthopedic Hardware PMFSH Active Problems Active Problems: All Active Problems Skin infection (Acute) Closed fracture dislocation of left ankle (Acute) Past Medical History Medical History Depression Elevated cholesterol HTN (hypertension) Family History Family history of problems with anesthesia: No Surgical History Surgical History History of incision and drainage History of open reduction and internal fixation (ORIF) procedure Hx of hemorrhoidectomy H/O colonoscopy History of Problems with Anesthesia: No Social History Social History Household Members: Spouse Housing: House Do you presently have visiting nurse or other home services: No Alcohol intake: current Alcohol intake frequency: holidays/special occasions only Patient Tobacco Use Status: Never used Tobacco Advance Directives: No Advance Directives Information Provided: Yes service: No Current occupational status: retired [employer] Allergies Allergy/AdvReac Type Severity Reaction Status Date / Time Penicillins [PENICILLINS] Allergy Unknown RASH Verified 06/01/24 13:53 Home Medications ?Medication ?Instructions ?Recorded ?Confirmed ?Last Taken ?Type fluticasone propionate 50 1 spray intranasal DAILY 12/24/23 06/12/24 02/05/24 History mcg/actuation nasal spray,suspension bupropion HCl 300 mg 24 hr tablet, 300 mg PO DAILY 02/06/24 06/12/24 03/08/24 History extended release escitalopram oxalate 5 mg tablet 5 mg PO DAILY 02/06/24 06/12/24 03/08/24 History fexofenadine 180 mg tablet 180 mg PO DAILY 02/06/24 06/12/24 03/08/24 History (Maggie Allergy) Exam Height,Weight and Vital Signs: Height 5 ft 8 in Weight 71.214 kg Pertinent Lab Results Pertinent Lab Results: Laboratory Tests 02/07/24 05:22 WBC 3.1 L Hgb 10.9 L Hct 32.2 L Plt Count 166 Sodium 137 Potassium 3.3 Chloride 103 Carbon Dioxide 28 BUN 11 Creatinine 0.73 Narrative Narrative: EKG 2023 Vent. Rate : 076 BPM Atrial Rate : 076 BPM P-R Int : 162 ms QRS Dur : 100 ms QT Int : 420 ms P-R-T Axes : 056 029 043 degrees QTc Int : 472 ms Normal sinus rhythm Normal ECG When compared with ECG of 15-DEC-2014 07:19, No significant change was found Assessment and Plan Assessment Anesthesia Assessment: Chart Reviewed Final Anesthetic Review Family History of Problems with Anesthesia: No History of Problems with Anesthesia: No Documented by User: Jelena Trevizo MD 06/14/24 09:56 PMFSH Past Medical History Medical History Depression Elevated cholesterol HTN (hypertension) Surgical History Surgical History History of incision and drainage History of open reduction and internal fixation (ORIF) procedure Hx of hemorrhoidectomy H/O colonoscopy Social History Social History Household Members: Spouse Housing: House Do you presently have visiting nurse or other home services: No Alcohol intake: current Alcohol intake frequency: holidays/special occasions only Patient Tobacco Use Status: Never used Tobacco Advance Directives: No Advance Directives Information Provided: Yes service: No Current occupational status: retired Meds Allergies Allergy/AdvReac Type Severity Reaction Status Date / Time Penicillins [PENICILLINS] Allergy Unknown RASH Verified 06/01/24 13:53 Home Medications ?Medication ?Instructions ?Recorded ?Confirmed ?Last Taken ?Type fluticasone propionate 50 1 spray intranasal DAILY 12/24/23 06/12/24 02/05/24 Hi story mcg/actuation nasal spray,suspension bupropion HCl 300 mg 24 hr tablet, 300 mg PO DAILY 02/06/24 06/12/24 03/08/24 History extended release escitalopram oxalate 5 mg tablet 5 mg PO DAILY 02/06/24 06/12/24 03/08/24 History fexofenadine 180 mg tablet 180 mg PO DAILY 02/06/24 06/12/24 03/08/24 History (Maggie Allergy) Exam Airway Mallampati Class: II TM Dist: >3cm Neck ROM: Full Heart: rrr Lungs: cta Assessment and Plan Assessment Anesthesia Assessment: Anesthesia Plan Discussed Final Anesthetic Review NPO: Yes ASA Class: II Final Preanesthetic Review: No Changes in Pt Med Stat, Meds/Allgs Chart Reviewed, Consent Obtained/Reviewed and Anes Risks/Benef Reviewed Patient Risk: Intermediate Procedure Risk: Low Anesthetic Plan Anesthetic Plan: GA Disposition: Standard PACU
[2024-06-14] VITALS (12 sets, daily range): BP systolic 133–153; BP diastolic 67–81; PULSE 73–88; RESP 7–22; TEMP 36.3–36.6; O2SAT 90–98; BMI 24.6
[2024-06-14] MEDS: Lactated Ringers 1,000 ML 100 ML IVCONT (10:41)
--- NOTE | 2024-06-14 11:16 | MHC.SHP ---
Pre-Procedural Eval Section A - 24 Hr Update-Section A only Date of Service: 06/14/24 The patient is an INPATIENT: No Changes since office visit: No Cold of Flu in the past 2 weeks, No New Medical Problems, No Changes in Medication and No Patient answered all questions The patient has been examined within 24 hours of the surgical procedure. The History & Physical has been completed within 30 days and I have reviewed it.: Yes Section B - Complete if H&P > 30 days Chief Complaint: Other fracture of left lower leg, subsequent Allergies: Allergies Allergy/AdvReac Type Severity Reaction Status Date / Time Penicillins [PENICILLINS] Allergy Unknown RASH Verified 06/14/24 09:57 Plan I have reviewed the history and physical and performed a pertinent physical examination on my patient. No changes have occurred unless specified. Time Spent With Patient Time: Total time managing care of this patient today ____ minutes.
--- NOTE | 2024-06-14 13:32 | P.BOP_ITS ---
Brief Operative Note Date of Service: 06/14/24 Pre-op diagnosis: left ankle infected hardware Post-op diagnosis: same Procedure: removal of hardware left ankle and debridement left fibula and left tibia Implants: none Surgeon: Jt Medrano MD Anesthesia: GETA and local Was an Aircraft Maintenance Director used for this Procedure?: Yes Aircraft Maintenance Director: Mary Perkins Estimated blood loss (mL): 50 Tourniquet time (min): 75 IV fluids (mL): 1,000 Pathology: other Condition: stable Disposition: PACU
[2024-06-14] MEDS: HYDROmorphone HCl 0.5 MG/0.5 ML SYRINGE 0.25 MG IVPUSH ×2 (13:38→13:43)
--- NOTE | 2024-06-21 09:37 | P.OP_ITS ---
Operative Note Operative Note Date of Service: 06/14/24 Narrative: Date of Service: 06/14/24 Pre-op diagnosis: left ankle infected hardware Post-op diagnosis: same Procedure: removal of hardware left ankle and debridement left fibula and left tibia Implants: none Surgeon: tJ Medrano MD Anesthesia: GETA and local Was an Buttonhole Machine Operator used for this Procedure?: Yes Buttonhole Machine Operator: Mary Perkins Estimated blood loss (mL): 50 Tourniquet time (min): 75 IV fluids (mL): 1,000 Pathology: other Condition: stable Disposition: PACU Patient was brought to the operating room and placed supine on the surgical table. She was prepped and draped in standard sterile fashion and a time out was called to identify proper site, proper procedure and IV antibiotics per weight were administered. I began by making an incision through the prior lateral incision. Full-thickness flaps were dissected down to the plate. The plate was removed easily with a screwdriver and a [place]. There was some purulent tissue in the sinus tracts proximally but there was no evidence of deep infection. I used a curette to clean out the screw holes and I also removed the syndesmosis button. I used a curette to freshen up the bone down to bleeding bone and then irrigated copiously and closed with nylon. I then turned my attention to the medial side where I made a small medial incision over the prior incision. A screwdriver was inserted and the cannulated screws were also removed. There was no evidence of infection on this side. The syndesmosis button was also removed. I irrigated copiously. The screw holes were curetted out and I closed with nylon. Patient was placed into a well-padded dressing and boot extubated and brought to recovery room in stable condition there were no known complications.
== END 2024-06-14 15:31 | disposition home or self-care (01) ==
LOC: HO.SSS 09:30
PROVIDERS: PCP Internal Medicine; Visit Provider Orthopaedic Surgery
PROC: (CPT 20680; principal; 2024-06-14 11:30)
DX: T84.69XA Infection and inflammatory reaction due to internal fixation device of other site, initial encounter (principal); Y79.3 Surgical instruments, materials and orthopedic devices (including sutures) associated with adverse incidents; I10 Essential (primary) hypertension; E78.5 Hyperlipidemia, unspecified; Z79.899 Other long term (current) drug therapy
CPT/HCPCS: 20680; 87070; 87073; 87077; 87186; 87205; J0131; J0736; J1100; J1170; J2371; J2405; J2704; J2795; J3010

== ENCOUNTER → 2024-06-14 09:30 | Outpatient (BNV) | payer MEDICARE, SELFPAY | PROVIDERS: PCP Internal Medicine; Visit Provider Orthopaedic Surgery | DX: T84.59XA Infection and inflammatory reaction due to other internal joint prosthesis, initial encounter (principal) | CPT/HCPCS: 27704 ==

== ENCOUNTER 2024-06-16 07:54 | Outpatient (AMB) | payer MEDICARE, SELFPAY ==
--- NOTE | 2024-06-16 08:04 | A.OFFVIS_ITS ---
Intake Visit Reasons: PO - Wound Check Intake Note: This is a 69 year old female who presents for a post op appointment for removal of hardware of theleft ankle and debridement of the left fibula and left tibia. At rest her pain level is a 0 but with movement a 5/10. She reports feeling twinging pain on the outer aspect of her left lower extremity. Cloth Desizing Range Tender Required: No Allergies Penicillins [PENICILLINS] Allergy (Unknown, Verified 06/16/24 08:06) RASH Medication List - Last Reconciled 06/16/24 by Sharlene oByce RN bupropion HCl XL 300 mg PO DAILY escitalopram oxalate 5 mg PO DAILY fexofenadine (Maggie Allergy) 180 mg PO DAILY fluticasone propionate 50 mcg/actuation 1 spray intranasal DAILY hydrocodone-acetaminophen 5-325 mg 1 tab PO Q8H PRN 7 days sulfamethoxazole-trimethoprim 800-160 mg (Bactrim DS) 1 tab PO BID 6 weeks HPI HPI PO - Wound Check: Details: 69-year-old female who presents in the office today for a wound check; 2 days status post left ankle removal of hardware and left fibula and tibia debridement, which was performed on 06/14/[address] Medrano. ? ? While in the office today, the patient reports when at rest she has no pain, however, when she is moving her pain is a 5/10. She describes her pain as ?twinging? on the outer aspect of the left lower extremity. ? [facility] Medical History Depression Elevated cholesterol HTN (hypertension) Surgical History History of incision and drainage History of open reduction and internal fixation (ORIF) procedure Hx of hemorrhoidectomy H/O colonoscopy Social History Household Members: Spouse Housing: House Do you presently have visiting nurse or other home services: No Alcohol intake: current Alcohol intake frequency: 0-2 drinks per day Comment: counts correct Patient Tobacco Use Status: Never used Tobacco service: No Current occupational status: retired Review of Systems Const All systems reviewed & are unremarkable except as noted in HPI and below Physical Exam Const General: cooperative, healthy appearing and no acute distress Resp Effort & Inspection: normal respiratory effort and able to speak in complete sentences Cardio Rate: regular rate Peripheral pulses: Peripheral pulses 2+ throughout GI Palpation (GI): Soft to palpation Skin Lesions: no lesions Rashes: no rashes Extrem Other: Left ankle: Incision site is clean, dry, and intact. Suzette device is no longer functioning due to a full bandage. Sutures are intact. No active drainage once Suzette was removed. Able to dorsiflex and plantarflex. NVI. Assessment & Plan Assessment & Plan (1) Closed fracture dislocation of left ankle: Code(s): S82.892A - Other fracture of left lower leg, initial encounter for closed fracture Category: Medical Qualifiers: Encounter type: subsequent encounter Fracture healing: with routine healing Qualified Code(s): S82.892D - Other fracture of left lower leg, subsequent encounter for closed fracture with routine healing (2) S/P hardware removal: Comment: Left ankle 06/14/24 Dr. Medrano Code(s): Z98.890 - Other specified postprocedural states Category: Surgical (3) S/P debridement: Comment: Left fibula and tibia 06/14/24 Dr. Medrano. Code(s): Z98.890 - Other specified postprocedural states Category: Surgical Plan Ms. Alonso is a 69-year-old female who presents in the office today for a wound check; 2 days status post left ankle removal of hardware and left fibula and tibia debridement, which was performed on 06/14/[address] Medrano. ? ? While in the office today, the patient reports when at rest she has no pain, however, when she is moving her pain is a 5/10. She describes her pain as ?twinging? on the outer aspect of the left lower extremity.? ? A new Suzette dressing was placed over the lateral incision site. A dry dressing was placed over the medial incision sites. She was placed back into the boot. She can toe touch weight bear until her follow-up. I instructed her that should her dressing device fills up again she can contact the office on Wednesday for a dressing change. We anticipate the area to continue to drain. Follow-up will be at her regularly scheduled appointment, or sooner if needed.? Patient Instructions: Scribed by Nikkie Vargas biomedical equipment technicianchepe mace PA-C on 06/16/2024 at 8:04 am, EST.? Coding Level of Care Code Global (78856) Diagnoses Closed fracture dislocation of left ankle with routine healing, subsequent encounter S82.892D Encounter type: subsequent encounter Fracture healing: with routine healing S/P hardware removal Z98.890 S/P debridement Z98.890
== END 2024-06-16 08:45 | disposition home or self-care (01) ==
PROVIDERS: PCP Internal Medicine; Visit Provider Physician Assistant
DX: S82.892D Other fracture of left lower leg, subsequent encounter for closed fracture with routine healing (principal)
CPT/HCPCS: 99024

== ENCOUNTER → 2024-06-16 07:54 | Outpatient (BNVA) | payer MEDICARE, SELFPAY | PROVIDERS: PCP Internal Medicine; Visit Provider Physician Assistant | DX: S82.892D Other fracture of left lower leg, subsequent encounter for closed fracture with routine healing (principal); Z98.890 Other specified postprocedural states | CPT/HCPCS: 99212 ==

== ENCOUNTER 2024-06-23 09:46 | Outpatient (REF) | payer MEDICARE, SELFPAY ==
--- NOTE | ~2024-06-23 | XR_ITS ---
EXAMINATION: XR ANKLE, LEFT CLINICAL INFORMATION: Pain COMPARISON: 05/01/2024 TECHNIQUE: AP, lateral, and mortise views of the left ankle. FINDINGS: Interval removal of the distal tibia and fibula fracture fixation hardware. The fractures appear predominantly healed. Tibiotalar joint space narrowing laterally. Heel spur. XR/XR ankle LT min 3V IMPRESSION: Interval removal of the distal tibia and fibula fracture fixation hardware. The fractures appear predominantly healed. Electronically signed by: Lloyd Dowling MD 06/29/2024 11:49 AM EDT
== END 2024-06-23 09:47 | disposition home or self-care (01) ==
LOC: HO.HOSX 09:46
PROVIDERS: Visit Provider Physician Assistant
DX: M25.572 Pain in left ankle and joints of left foot (principal); S82.892D Other fracture of left lower leg, subsequent encounter for closed fracture with routine healing; Z98.890 Other specified postprocedural states
CPT/HCPCS: 73610; 99212

== ENCOUNTER 2024-06-23 10:34 | Outpatient (AMB) | payer MEDICARE, SELFPAY ==
--- NOTE | 2024-06-23 10:53 | MHC.OFFVIS ---
Intake Visit Reasons: PO LT ankle SHAQ 06/14/24 NE Intake Note: Uzair is a 69 year old female who presents today for a post op appointment s/p left ankle SHAQ 06/14/24 NE. Patient reports she is doing well, however the boot is a little uncomfortable. Allergies Penicillins [PENICILLINS] Allergy (Unknown, Verified 06/23/24 11:03) RASH HPI HPI PO LT ankle SHAQ 06/14/24 NE: Details: 69-year-old female who presents in the office today for a wound check; 9?days status post left ankle removal of hardware and left fibula and tibia debridement, which was performed on 06/14/[address] Medrano. I last saw the patient in the office on 06/16/24 when a new dressing was applied, and she was placed back into the walking boot. She was told to only toe-touch weight bear. ? ? While in the office today, the patient reports she is doing well. However, she states the boot is a little uncomfortable. ? PFSH Medical History Depression Elevated cholesterol HTN (hypertension) Surgical History History of incision and drainage History of open reduction and internal fixation (ORIF) procedure Hx of hemorrhoidectomy H/O colonoscopy Social History Household Members: Spouse Housing: House Do you presently have visiting nurse or other home services: No Alcohol intake: current Alcohol intake frequency: 0-2 drinks per day Comment: counts correct Patient Tobacco Use Status: Never used Tobacco service: No Current occupational status: retired Review of Systems Const All systems reviewed & are unremarkable except as noted in HPI and below Physical Exam Const General: cooperative, healthy appearing and no acute distress Resp Effort & Inspection: normal respiratory effort and able to speak in complete sentences Cardio Rate: regular rate Peripheral pulses: Peripheral pulses 2+ throughout GI Palpation (GI): Soft to palpation Skin Lesions: no lesions Rashes: no rashes Extrem Other: Left ankle: ROSA wound device in place and functioning appropriately. Incision site is clean and intact.Granulation tissue is filling in between sutures on the lateral incision site. Skin has some moisture and condensation. Sutures are intact. No active drainage once Rosa was removed. Able to dorsiflex and plantarflex. NVI. Assessment & Plan Assessment & Plan (1) Closed fracture dislocation of left ankle: Code(s): S82.892A - Other fracture of left lower leg, initial encounter for closed fracture Category: Medical Qualifiers: Encounter type: subsequent encounter Fracture healing: with routine healing Qualified Code(s): S82.892D - Other fracture of left lower leg, subsequent encounter for closed fracture with routine healing (2) S/P hardware removal: Comment: Left ankle 06/14/24 Dr. Medrano Code(s): Z98.890 - Other specified postprocedural states Category: Surgical (3) S/P debridement: Comment: Left fibula and tibia 06/14/24 Dr. Medrano. Code(s): Z98.890 - Other specified postprocedural states Category: Surgical Plan Ms. Alonso is a 69-year-old female who presents in the office today for a wound check; 9?days status post left ankle removal of hardware and left fibula and tibia debridement, which was performed on 06/14/[address] Medrano. I last saw the patient in the office on 06/16/24 when a new dressing was applied, and she was placed back into the walking boot. She was told to only toe-touch weight bear. ? ? While in the office today, the patient reports she is doing well. However, she states the boot is a little uncomfortable.? ? Dr. Medrano was available to see the patient with me while in the office today and a collaborative treatment plan was made. The patient presented in the office today weight bearing on the left lower extremity despite the recommendation of only toe touch weight bearing at her last appointment. The ROSA was removed in the office and a dry dressing was placed over the medial and lateral malleolar incision sites with instructions to perform dry dressing changes daily and supplies were provided in the office. She was supplied with an CARLY wrap and placed back into the walking boot. Dr. Medrano recommended that she can discontinue the use of the boot as long as she does not have pain with weight bearing. She should have pain she was instructed to return to the boot immediately. The patient reported nearing the end of her Bactrim course, therefore, I sent a new prescription for sulfamethoxazole-trimethoprim 800-160 mg (Bactrim DS) PO BID to the pharmacy. Follow-up will be in one week for anticipation of suture removal, or sooner if needed. ? ? X-rays of the left ankle which were obtained while in the office today and were reviewed by me, Mary Perkins PA-C, revealed successful removal of orthopedic hardware without acute fracture or dislocation. ? Orders: Orders XR ankle LT min 3V Today M25.579 - Pain in unspecified ankle and joints of unspecified foot Medications: Refilled sulfamethoxazole-trimethoprim 800-160 mg (Bactrim DS) 1 tab PO BID 84 tabs 0RF suture abscess 6 weeks Patient Instructions: Scribed by Nikkie Vargas medical billing and coding specialist, for Mary Perkins PA-C on 06/23/2024 at 10:46 am, EST.? Coding Level of Care Code Global (77272) Diagnoses Closed fracture dislocation of left ankle with routine healing, subsequent encounter S82.892D Encounter type: subsequent encounter Fracture healing: with routine healing S/P hardware removal Z98.890 S/P debridement Z98.890
== END 2024-06-23 11:39 | disposition home or self-care (01) ==
PROVIDERS: PCP Internal Medicine; Visit Provider Physician Assistant
DX: S82.892D Other fracture of left lower leg, subsequent encounter for closed fracture with routine healing (principal); Z98.890 Other specified postprocedural states
CPT/HCPCS: 99024

== ENCOUNTER 2024-06-29 13:07 | Outpatient (AMB) | payer MEDICARE, SELFPAY ==
--- NOTE | 2024-06-29 13:23 | MHC.OFFVIS ---
Intake Visit Reasons: PO LT ankle SHAQ 06/14/24 NE Intake Note: Uzair is a 69 year old female who presents today for a post op appointment s/p left ankle SHAQ 06/14/24 NE. Patient reports she is doing well. SHe states that her has gotten better, however when she is walking and feeling pain she puts her walking boot on. Allergies Penicillins [PENICILLINS] Allergy (Unknown, Verified 06/23/24 11:03) RASH HPI HPI PO LT ankle SHAQ 06/14/24 NE: Details: 69-year-old female who presents in the office today for a wound check; 15 days status post left ankle removal of hardware and left fibula and tibia debridement, which was performed on 06/14/[address] Medrano. I last saw the patient in the office on 06/23/24 when the patient presented weight bearing despite prior recommendations. The ROSA was removed, and a dry dressing was applied over the medial and lateral malleolar incision sites. She was supplied with an CARLY wrap after Dr. Medrano recommended for her to discontinue the use of the boot as long as she did not have pain with weight bearing. A new prescription for sulfamethoxazole-trimethoprim 800-160 mg (Bactrim DS) PO BID to the pharmacy.? ? While in the office today, the patient reports she is doing well. She states her left hand has shown improvement, however, she claims to have pain with ambulation. She states this is when she returns to wearing the boot. ? [facility] Medical History Depression Elevated cholesterol HTN (hypertension) Surgical History History of incision and drainage History of open reduction and internal fixation (ORIF) procedure Hx of hemorrhoidectomy H/O colonoscopy Social History Household Members: Spouse Housing: House Do you presently have visiting nurse or other home services: No Alcohol intake: current Alcohol intake frequency: 0-2 drinks per day Comment: counts correct Patient Tobacco Use Status: Never used Tobacco service: No Current occupational status: retired Review of Systems Const All systems reviewed & are unremarkable except as noted in HPI and below Physical Exam Const General: cooperative, healthy appearing and no acute distress Resp Effort & Inspection: normal respiratory effort and able to speak in complete sentences Cardio Rate: regular rate Peripheral pulses: Peripheral pulses 2+ throughout GI Palpation (GI): Soft to palpation Skin Lesions: no lesions Rashes: no rashes Extrem Other: Left ankle medial and lateral incision sites sutures intact. Incision sites are c/d/i. Able to dosri/plantar flex. Eschar tissue where the ROSA adhesive was. No active drainage. Hives scattered throughout the patient's body from prior allergic reaction likely abx. NVI. Assessment & Plan Assessment & Plan (1) Closed fracture dislocation of left ankle: Code(s): S82.892A - Other fracture of left lower leg, initial encounter for closed fracture Category: Medical Qualifiers: Encounter type: subsequent encounter Fracture healing: with routine healing Qualified Code(s): S82.892D - Other fracture of left lower leg, subsequent encounter for closed fracture with routine healing (2) S/P hardware removal: Comment: Left ankle 06/14/24 Dr. Medrano Code(s): Z98.890 - Other specified postprocedural states Category: Surgical (3) S/P debridement: Comment: Left fibula and tibia 06/14/24 Dr. Medrano. Code(s): Z98.890 - Other specified postprocedural states Category: Surgical Plan Ms. Alnoso is a 69-year-old female who presents in the office today for a wound check; 15 days status post left ankle removal of hardware and left fibula and tibia debridement, which was performed on 06/14/[address] Medrano. I last saw the patient in the office on 06/23/24 when the patient presented weight bearing despite prior recommendations. The ROSA was removed, and a dry dressing was applied over the medial and lateral malleolar incision sites. She was supplied with an CARLY wrap after Dr. Medrano recommended for her to discontinue the use of the boot as long as she did not have pain with weight bearing. A new prescription for sulfamethoxazole-trimethoprim 800-160 mg (Bactrim DS) PO BID to the pharmacy.? ? While in the office today, the patient reports she is doing well. She states her left hand has shown improvement, however, she claims to have pain with ambulation. She states this is when she returns to wearing the boot.? ? Sutures were removed and steri-strips applied. A dry dressing was placed over the incision site. The patient will perform daily dressing changes. She has a complaint of fully body hives from the Bactrim she was taking. She has since discontinued the use of the antibiotic and has been transitioned to levofloxacin 500 mg PO. She will continue to monitor for hive resolution. Should the hives not resolve she will contact the office, and our next option would be a referral to infectious disease to see if there is another antibiotic option available due to a penicillin allergy. Follow-up will be in two weeks for a wound check, or sooner if needed. ?? ? Patient has a trip planned to go to [facility] next week. ? Patient Instructions: Scribed by Nikkie Vargas medical fee clerk, for Mary Perkins PA-C on 06/29/2024 at 1:30 pm, EST.? Coding Level of Care Code Global (01465) Diagnoses Closed fracture dislocation of left ankle with routine healing, subsequent encounter S82.892D Encounter type: subsequent encounter Fracture healing: with routine healing S/P hardware removal Z98.890 S/P debridement Z98.890
== END 2024-06-29 14:20 | disposition home or self-care (01) ==
PROVIDERS: PCP Internal Medicine; Visit Provider Physician Assistant
DX: S82.892D Other fracture of left lower leg, subsequent encounter for closed fracture with routine healing (principal); Z98.890 Other specified postprocedural states
CPT/HCPCS: 99024

== ENCOUNTER → 2024-06-29 13:07 | Outpatient (BNVA) | payer MEDICARE, SELFPAY | PROVIDERS: PCP Internal Medicine; Visit Provider Physician Assistant | DX: Z09 Encounter for follow-up examination after completed treatment for conditions other than malignant neoplasm (principal); S82.892D Other fracture of left lower leg, subsequent encounter for closed fracture with routine healing; X58.XXXD Exposure to other specified factors, subsequent encounter; T84.59XA Infection and inflammatory reaction due to other internal joint prosthesis, initial encounter | CPT/HCPCS: 99212 ==

== ENCOUNTER 2024-07-13 10:26 | Outpatient (AMB) | payer MEDICARE, SELFPAY ==
--- NOTE | 2024-07-13 10:45 | MHC.OFFVIS ---
Intake Visit Reasons: PO LT ankle SHAQ 06/14/24 NE Intake Note: Uzair is a 69 year old female who presents today for a post operative appointment s/p Left Ankle ROM 06/14/24. Patient reports that she is doing well with no concerns Allergies Penicillins [PENICILLINS] Allergy (Unknown, Verified 06/23/24 11:03) RASH HPI HPI PO LT ankle SHAQ 06/14/24 NE: Details: Uzair is a 69 year old female who presents today for a post operative appointment s/p Left Ankle ROM 06/14/24. Patient reports that she is doing well with no concerns PFSH Medical History Depression Elevated cholesterol HTN (hypertension) Surgical History History of incision and drainage History of open reduction and internal fixation (ORIF) procedure Hx of hemorrhoidectomy H/O colonoscopy Social History Household Members: Spouse Housing: House Do you presently have visiting nurse or other home services: No Alcohol intake: current Alcohol intake frequency: 0-2 drinks per day Comment: counts correct Patient Tobacco Use Status: Never used Tobacco service: No Current occupational status: retired Physical Exam Extrem Other: Healing incision. An walking comfortably with minimal antalgia. 25 degree arc of motion. Assessment & Plan Assessment & Plan (1) S/P debridement: Comment: Left fibula and tibia 06/14/24 Dr. Medrano. Code(s): Z98.890 - Other specified postprocedural states Category: Surgical Plan: Infected hardware that was removed and she is improving on p.o. antibiotics. Continue antibiotics and follow up in 2 weeks. At this point though everything looks good. Coding Level of Care Code Global (79072) Diagnoses S/P debridement Z98.890
== END 2024-07-13 10:51 | disposition home or self-care (01) ==
PROVIDERS: PCP Internal Medicine; Visit Provider Physician Assistant
DX: Z98.890 Other specified postprocedural states (principal)
CPT/HCPCS: 99024

== ENCOUNTER → 2024-07-13 10:26 | Outpatient (BNVA) | payer MEDICARE, SELFPAY | PROVIDERS: PCP Internal Medicine; Visit Provider Physician Assistant | DX: Z98.890 Other specified postprocedural states (principal) | CPT/HCPCS: 99212 ==

== ENCOUNTER 2024-07-27 10:10 | Outpatient (AMB) | payer MEDICARE, SELFPAY ==
--- NOTE | 2024-07-27 10:18 | MHC.OFFVIS ---
Intake Visit Reasons: PO LT ankle SHAQ 06/14/24 NE-2 Wk follow up Intake Note: Uzair is a 69 year old female who presents today for a post operative appointment s/p Left Ankle SHAQ 06/14/24. Left ankle ORIF on 02/08/24 LT ankle I&D 03/08/24 Allergies Penicillins [PENICILLINS] Allergy (Unknown, Verified 06/23/24 11:03) RASH HPI HPI PO LT ankle SHAQ 06/14/24 NE-2 Wk follow up: Details: Uzair is a 69 year old female who presents today for a post operative appointment s/p Left Ankle SHAQ 06/14/24. Left ankle ORIF on 02/08/24 LT ankle I&D 03/08/24 Miranda is 6 weeks status post removal of hardware. She has been doing well. Her wounds are healed. She does have some swelling and pain with ambulation. [facility] Medical History Depression Elevated cholesterol HTN (hypertension) Surgical History History of incision and drainage History of open reduction and internal fixation (ORIF) procedure Hx of hemorrhoidectomy H/O colonoscopy Social History Household Members: Spouse Housing: House Do you presently have visiting nurse or other home services: No Alcohol intake: current Alcohol intake frequency: 0-2 drinks per day Comment: counts correct Patient Tobacco Use Status: Never used Tobacco service: No Current occupational status: retired Physical Exam Extrem Other: Minimal soft tissue swelling. Incisions are clean dry and intact. She is moving her ankle comfortably. Mild tenderness palpation posterior medial malleolus. Assessment & Plan Assessment & Plan (1) S/P hardware removal: Comment: Left ankle 06/14/24 Dr. Medrano Code(s): Z98.890 - Other specified postprocedural states Category: Surgical Plan: Status post ORIF complicated by skin breakdown and subsequent infection. Removal of hardware performed and she is doing well. She was on IV antibiotics and now Po's. She can discontinue p.o. antibiotics and will follow up in 6 weeks. (2) Closed fracture dislocation of left ankle: Code(s): S82.892A - Other fracture of left lower leg, initial encounter for closed fracture Category: Medical Qualifiers: Encounter type: subsequent encounter Fracture healing: with routine healing Qualified Code(s): S82.892D - Other fracture of left lower leg, subsequent encounter for closed fracture with routine healing Plan: (3) Skin infection: Code(s): L08.9 - Local infection of the skin and subcutaneous tissue, unspecified Category: Medical Plan: Coding Level of Care Code Global (98442) Diagnoses S/P hardware removal Z98.890 Closed fracture dislocation of left ankle with routine healing, subsequent encounter S82.892D Encounter type: subsequent encounter Fracture healing: with routine healing Skin infection L08.9
== END 2024-07-27 11:47 | disposition home or self-care (01) ==
PROVIDERS: PCP Internal Medicine; Visit Provider Orthopaedic Surgery
DX: Z98.890 Other specified postprocedural states (principal); S82.892D Other fracture of left lower leg, subsequent encounter for closed fracture with routine healing; L08.9 Local infection of the skin and subcutaneous tissue, unspecified
CPT/HCPCS: 99024

== ENCOUNTER → 2024-07-27 10:10 | Outpatient (BNVA) | payer MEDICARE, SELFPAY | PROVIDERS: PCP Internal Medicine; Visit Provider Orthopaedic Surgery | DX: S82.892D Other fracture of left lower leg, subsequent encounter for closed fracture with routine healing (principal); L08.9 Local infection of the skin and subcutaneous tissue, unspecified; Z98.890 Other specified postprocedural states | CPT/HCPCS: 99212 ==

== ENCOUNTER 2024-09-04 10:12 | Outpatient (AMB) | payer MEDICARE, SELFPAY ==
--- NOTE | 2024-09-04 10:19 | MHC.OFFVIS ---
Vital Signs 09/04/24 10:22 Height 5 ft 8 in Weight 162 lb BMI 24.6 Intake Visit Reasons: PO LT ankle SHAQ 06/14/24 NE-6 Wk follow up Intake Note: Uzair is a 69 year old female who presents today for a post operative appointment s/p Left Ankle SHAQ 06/14/24. Patient reports that she is doing well, she reports that she continues to wear her brace with most activities. Left ankle ORIF on 02/08/24 LT ankle I&D 03/08/24 Allergies Penicillins [PENICILLINS] Allergy (Unknown, Verified 09/04/24 10:22) RASH HPI HPI PO LT ankle SHAQ 06/14/24 NE-6 Wk follow up: Details: Uzair is a 69 year old female who presents today for a post operative appointment s/p Left Ankle SHAQ 06/14/24. Patient reports that she is doing well, she reports that she continues to wear her brace with most activities. Left ankle ORIF on 02/08/24 LT ankle I&D 03/08/24 PFSH Medical History Depression Elevated cholesterol HTN (hypertension) Surgical History History of incision and drainage History of open reduction and internal fixation (ORIF) procedure Hx of hemorrhoidectomy H/O colonoscopy Social History Household Members: Spouse Housing: House Do you presently have visiting nurse or other home services: No Alcohol intake: current Alcohol intake frequency: 0-2 drinks per day Comment: counts correct Patient Tobacco Use Status: Never used Tobacco service: No Current occupational status: retired Physical Exam Vital Signs: BMI result Body Mass Index 24.6 Extrem Other: Medial and lateral incisions are clean dry and intact. There is no effusion and no soft tissue swelling. She has painless range of motion of her left ankle with some mild limitation in terminal dorsiflexion. Assessment & Plan Assessment & Plan (1) Closed fracture dislocation of left ankle: Code(s): S82.892A - Other fracture of left lower leg, initial encounter for closed fracture Category: Medical Qualifiers: Encounter type: subsequent encounter Fracture healing: with routine healing Qualified Code(s): S82.892D - Other fracture of left lower leg, subsequent encounter for closed fracture with routine healing Plan: This is a 69-year-old woman with a left ankle fracture that was treated surgically and complicated by superficial infection requiring removal of hardware. She has recovered fully and no further intervention is warranted. She may resume activity as tolerated and follow up as needed. Plan Follow up as needed Coding Level of Care Code Est Pt Level 3 (18845) Diagnoses Closed fracture dislocation of left ankle with routine healing, subsequent encounter S82.892D Encounter type: subsequent encounter Fracture healing: with routine healing
[2024-09-04 10:22] VITALS: BMI 24.6
== END 2024-09-04 10:26 | disposition home or self-care (01) ==
LOC: HO.HOS 10:12
PROVIDERS: PCP Internal Medicine; Visit Provider Orthopaedic Surgery
DX: S82.892D Other fracture of left lower leg, subsequent encounter for closed fracture with routine healing (principal)
CPT/HCPCS: 99024

== ENCOUNTER → 2024-09-04 10:12 | Outpatient (BNVA) | payer MEDICARE, SELFPAY | PROVIDERS: PCP Internal Medicine; Visit Provider Orthopaedic Surgery ==